=== PATIENT | female | born 1975 | race Asian ===

== ENCOUNTER 2016-12-18 10:45 | Emergency (ER) | payer BC ==
[2016-12-18 14:04] VITALS: BP 115/67
[2016-12-18] MEDS ORDERED: Ciprofloxacin TAB* 500 MG PO ONE (15:38)
--- NOTE | 2016-12-28 14:00 | UC ---
Marciano Francis Erika, scribed for Melanie Garcia DO on 12/18/16 at 1440 . Abdominal Pain Female HPI - HPI Summary HPI Summary: Patient is a 41-year-old female presenting to [facility] with a CC of constant RLQ pain. Patient reports that she developed this cramping pain 5 days ago, gradually worsening daily. Pain has always been located in the RLQ, but in the past two days has intermittently radiated to the right lower flank as well. Patient notes that pain is worst in the morning and at night, and is somewhat better during the day. This morning, pain was a 6/10, and is now a 4/10. There are seemingly random spikes of increased pain. Pain is not aggravated by bumps in the road. Patient also notes that 2 days ago, she had a subjective fever and chills and took Tylenol. She also reports frequent BMs yesterday, but denies diarrhea. Patient denies any other symptoms including sore throat, ear ache, cough, SOB, chest pain, decreased appetite, nausea, vomiting, and urinary symptoms. PSHx cholecystectomy, uterine surgery - pt is unsure why she had this surgery. She denies Hx appendectomy. FHx HTN, hyperlipidemia. Patient does not smoke. - History of Current Complaint Chief Complaint: UCAbdominalPain Stated Complaint: ABD PAIN Time Seen by Provider: 12/18/16 14:35 Hx Obtained From: Patient Hx Last Menstrual Period: 12/09/16 Onset/Duration: Gradual Onset, Lasting Days - 5 days, Still Present Timing: Constant Severity Initially: Mild Severity Currently: Moderate Pain Intensity: 4 Pain Scale Used: 0-10 Numeric Location: Discrete At: RLQ Radiates: Yes Radiates to: Flank - R Character: Cramping Aggravating Factor(s): Nothing Alleviating Factor(s): Nothing Associated Signs and Symptoms: Positive: Fever - subjective. Negative: Cough, Chest Pain, Urinary Symptoms, Decreased Appetite, Nausea, Vomiting, Diarrhea Allergies/Adverse Reactions: Allergies Allergy/AdvReac Type Severity Reaction Status Date / Time No Known Allergies Allergy Verified 12/18/16 11:43 PMH/Surg Hx/FS Hx/Imm Hx Endocrine History Of: Denies: Diabetes, Thyroid Disease Cardiovascular History Of: Denies: Cardiac Disorders, Hypertension Respiratory History Of: Denies: COPD, Asthma GI/ History Of: Reports: Gall Bladder Disease - s/p [place] 2006 Denies: Ulcer Cancer History Of: Denies: Breast Cancer - Surgical History Surgical History: Yes Surgery Procedure, Year, and Place: 11/17 [facility] [place]. uterine surgery - unsure why - Family History Known Family History: Positive: Hypertension, Other - hyperlipidemia - Social History Occupation: Employed Full-time Alcohol Use: None Substance Use Type: None Smoking Status (MU): Never Smoked Tobacco Review of Systems Constitutional: Fever - subjective, Chills Skin: Negative Eyes: Negative ENT: Negative Respiratory: Negative Cardiovascular: Negative Gastrointestinal: Abdominal Pain - RLQ sometimes radiating to R flank Genitourinary: Negative Motor: Negative Neurovascular: Negative Musculoskeletal: Negative Neurological: Negative Psychological: Negative All Other Systems Reviewed And Are Negative: Yes Physical Exam Triage Information Reviewed: Yes Appearance: Well-Appearing, No Pain Distress, Well-Nourished Vital Signs: Initial Vital Signs Temp 98.3 F 12/18/16 11:35 Pulse 77 12/18/16 11:35 Resp 16 12/18/16 11:35 BP 116/67 12/18/16 11:35 Pulse Ox 100 12/18/16 11:35 Vital Signs Reviewed: Yes Eyes: Positive: Conjunctiva Clear. Negative: Discharge ENT: Positive: Hearing grossly normal. Negative: Muffled/hoarse voice Neck: Positive: Supple, Nontender Respiratory: Positive: Lungs clear, Normal breath sounds, No respiratory distress, No accessory muscle use Cardiovascular: Positive: RRR, No Murmur Abdomen Description: Positive: Soft, Other: - Periumbilical and RLQ tenderness. Negative: CVA Tenderness (R), CVA Tenderness (L), Distended, Guarding Bowel Sounds: Positive: Present Musculoskeletal Exam: Normal Neurological: Positive: Alert, Muscle Tone Normal Psychological Exam: Normal Psychological: Positive: Age Appropriate Behavior Skin Exam: Other - warm, dry, normal color Abd Pain Female Course/Dx - Course Course Of Treatment: Patient declined CT A/P w/o contrast to look for a kidney stone. Patient declines transfer to the ED to r/o appendicitis. Discussed risks of leaving AMA with patient. These risks include worsening infection, increased pain, ruptured appendix with peritonitis, sepsis, and . Discussed that antibiotics prescribed for possible UTI will not be effective against an infected kidney stone or appendicitis. Patient verbalized understanding. Patient was again advised to go to the ER, especially for new or worsening symptoms. - Differential Dx/Diagnosis Provider Diagnoses: 1. UTI. 2. Abdominal pain NOS. 3. AMA Discharge - Discharge Plan Condition: Stable Disposition: AGAINST MEDICAL ADVICE Prescriptions: Ciprofloxacin TAB* [Cipro Tab*] 250 mg PO BID #6 tab Patient Education Materials: Kidney Stones (ED), Urinary Tract Infection in Women (ED), Acute Abdominal Pain (ED) Referrals: Kathryn Cutler MD [Primary Care Provider] - As Soon As Possible Additional Instructions: YOU ARE LEAVING AGAINST MEDICAL ADVISE. WE HAVE RECOMMENDED TRANSFER TO THE ED FOR THOROUGH EVALUATION OF YOUR ABDOMINAL PAIN TO RULE OUT APPENDICITIS, INFECTED KIDNEY STONE OR OTHER SERIOUS INTRA-ABDOMINAL PROCESS. YOU HAVE REFUSED. YOUR RISKS INCLUDE WORSENING PAIN, WORSENING INFECTION, RUPTURE, SEPSIS AND . IF YOU CHANGE YOUR MIND, YOU CAN STILL GO TO THE ED AT ANY TIME. BECAUSE THERE IS EVIDENCE OF INFECTION IN YOUR URINE, WE WILL START YOU ON ANTIBIOTICS TO COVER A UTI. UNDERSTAND THAT THIS MEDICINE WOULD NOT BE ADEQUATE TO TREAT ANY OF THE PROBLEMS LISTED IN THE PARA GRAPH ABOVE. CIPROFLOXACIN: You have been given a new antibacterial agent, ciprofloxacin (Cipro). This medicine is not related to the penicillins, sulfas, cephalosporins, or tetracyclines. It is often given to patients who are allergic to these drugs. It has been chosen for you either because other drugs are not appropriate, or because of the nature of your problem. Cipro should not be taken with antacids, as these can decrease its effectiveness. It can be taken without regard to meals. CIPRO SHOULD NOT BE TAKEN BY CHILDREN, NURSING WOMEN, OR WOMEN. Although Cipro is usually well-tolerated, common side effects can include nausea and diarrhea. Contact your doctor if you experience any unusual symptoms while on this medication, such as joint pain or swelling, shortness of breath, wheezing, faintness, or hives. ANY TIME YOU TAKE AN ANTIBIOTIC, IT IS IMPORTANT TO REPLENISH THE BODY'S BALANCE OF "GOOD" BACTERIA BY EATING HIGH QUALITY CULTURED FOOD SUCH YOGURT, SAURKRAUT OR BLAINE CHI AND/OR TAKING A PROBIOTIC SUPPLEMENT. The documentation as recorded by the Marciano fofana Erika accurately reflects the service I personally performed and the decisions made by , Melanie Garcia DO.
== END 2016-12-18 15:05 | disposition left against medical advice (07) ==
LOC: UCEAST 10:45
DX: N39.0 Urinary tract infection, site not specified (principal); R10.31 Right lower quadrant pain; Z32.02 Encounter for pregnancy test, result negative; R50.9 Fever, unspecified; Z90.49 Acquired absence of other specified parts of digestive tract
CPT/HCPCS: 81003; 84702; 87086; 99212; A9270-GY; G0463

== ENCOUNTER 2019-02-08 11:32 | Emergency (ER) | payer OTHER ==
--- OUTSIDE RECORDS SUMMARY | 2019-02-08 11:46 | XMS REPORT | Continuity of Care Document ---
:1975 External Reference #:[id number] Author Name Steven Medina M.D. Address [address] [place] [address] Care Team Providers Name Role Phone Kathryn Cutler M.D. Primary Care Physician Unavailable Payers Date Identification Numbers Payment Provider Subscriber Policy Number: [id number] [employer] Ppo/Pos/Epo/Nap Smita V Dut PayID: [id number] [address] [place] [address] Advance Directives Description No Information Available Problems Active Problems Provider Date Keratoconus, stable condition Steven Medina M.D. Onset: 01/13/2016 Presbyopia Steven Medina M.D. 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 Employment ETOH Use Denies alcohol use Recreational Drug Use Denies Drug Use Tobacco Use Start: Unknown Patient has never smoked Smoking Status Reviewed: 01/19/19 Patient has never smoked Allergies, Adverse Reactions, Alerts Description No Known Drug Allergies Medications Active Medications SIG Qnty Indications Ordering Provider Date Vitamin D Unknown 2000Unit Capsules Multi Vitamin Daily Unknown Tablets Vitamin B Complex Unknown Tablets Immunizations Description No Information Available Vital Signs Description No Information Available Results Description No Information Available Procedures Date Code Description Status 01/18/2018 25540 Scanning Computerized Ophthalmic Diagnostic Imaging, Completed Anterior 01/18/2018 51893 Computerized Corneal Topography Completed 01/18/2018 49381 Est Patient Comprehensive Exam Completed 2017 05960 Scanning Computerized Ophthalmic Diagnostic Imaging, Completed Anterior 2017 24447 Computerized Corneal Topography Completed 2017 38142 Determination Of Refractive State Completed 2017 03246 Est Patient Comprehensive Exam Completed 01/13/2016 77999 Est Patient Comprehensive Exam Completed 01/13/2016 84294 Computerized Corneal Topography Completed 01/13/2016 07550 Scanning Computerized Ophthalmic Diagnostic Imaging, Completed Anterior 01/05/2014 15441 Computerized Corneal Topography Completed 01/05/2014 67602 Est Patient Comprehensive Exam Completed 12/27/2012 64088 Computerized Corneal Topography Completed 12/27/2012 45366 Est Patient Comprehensive Exam Completed 11/09/2011 31500 Computerized Corneal Topography Completed 11/09/2011 82317 Determination Of Refractive State Completed 11/09/2011 19135 New Patient Comprehensive Exam Completed Encounters Description No Information Available Plan of Treatment 01/19/2019 - Steven Medina M.D.H18.613 Keratoconus, stable, bilateralComments :Smoking can increase the risk of developing or worsening any eye related disease, as well as affect your overall health. If you are a smoker, we strongly recommend that you quit.If you are not a smoker, we strongly recommend that you do not start. You have Keratoconus in your left eye. This is when your cornea is abnormally shaped. You have Keratoconus in your right eye. This is when your cornea is abnormally shaped.Follow up:1 Year Follow Up Diagnostic Refraction Corneal Topography You can expect to have your eyes dilated at your next visit. If Dr. Medina orders any additional testing, it may require extra time. We recommend that you bring sunglasses, as dilation drops often make you light sensitive until they wear off. We always recommend you bring someone to drive you home if you are uncomfortable driving with your eyes dilated. If you have any questions before your next visit, feel free to call our office at .h52.0 PresbyopiaComments:You have presbyopia. This is when the lens in your eye loses the ability to change focus, and happens as we age. A pair of reading glasses will help you see up close.
--- OUTSIDE RECORDS SUMMARY | 2019-02-08 11:46 | XMS REPORT | Continuity of Care Document ---
:1975 External Reference #:[id number] Author Name Kathryn Lopes M.D. 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 [employer] Number: [id number] [address] PayID: [id number] [place] [address] Advance Directives Description No Information Available Problems Active Problems Provider Date Contact dermatitis Dariel Hernandez M.D. Onset: 01/19/2008 External hemorrhoids without complication Asiya Rowe M.D. Onset: 2010 Visual impairment Asiya Rowe M.D. Onset: 08/10/2011 Female infertility Asiya Rowe M.D. Onset: 08/10/2011 Malaise and fatigue Asiya Rowe M.D. Onset: 08/10/2011 Vitamin D deficiency Kathryn Lopes M.D. Onset: 08/18/2012 Obstructive sleep apnea syndrome Kathryn Lopes M.D. Onset: 08/18/2012 Thalassemia trait Rosa Truong NP Onset: 01/01/2016 Family History Date Family Member(s) Observation Comments General Cerebrovascular Accident (CVA) PGF,PGM General Stomach Cancer mother's sister. General No family hx breast, colon CA. no DM. Father colon surgery, diverticulitis? with patient. Mother HTN, high cholesterol. arthritis, Hepatitis C lives with patient. Order 8 siblings. [facility] still in [facility] Social History Type Date Description Comments Sex Unknown Marital Status Patient is Living Situation Lives with spouse, mother and father Came to the us in 1997 from [place]. 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 Tobacco Use Start: Unknown Never Smoked Cigarettes Smoking Status Reviewed: 01/19/19 Never Smoked Cigarettes ETOH Use Denies alcohol use Tobacco Use Start: Unknown Patient has never smoked Exercise Type/Frequency Does not exercise currently Current Seat Belt/Car Seat Always uses a seat belt Guns in Home There are not guns in the home Smoke Alarms There are smoke alarms in the house Allergies, Adverse Reactions, Alerts Description No Known Drug Allergies Medications Active Medications SIG Qnty Indications Ordering Provider Date Escitalopram Oxalate 1 by mouth every 30tabs F43.22 Kathryn Ronquillo 01/19/2019 day Lashae Lopes 5mg Tablets Clonazepam take one by mouth 30tabs F43.22 Kathryn Ronquillo 09/28/2018 0.5mg twice daily as Lashae Lopes Tablets needed for panic disorder Multivitamin Adult Kathryn Ronquillo 01/13/2018 Lashae Lopes Chewtabs Vitamin D3 1 a day. Kathryn Ronquillo 01/13/2018 2000Unit Lashae Lopes Tablets History Medications Lorazepam take 1/2 - 1 pill 45tabs F43.22 Carol House 09/28/2018 - 0.5mg by mouth up to ZELALEM Guzman 09/28/2018 Tablets twice daily as needed for anxiety No Active Unknown 12/01/2016 - Medications 01/13/2018 Vitamin D 1 by mouth weekly 8caps E55.9 Rosa Truong NP 12/26/2015 - (Ergocalciferol) for 8 weeks 12/01/2016 [id number] Capsules Physical Therapy evaluate and treat M62.89 Kathryn Ronquillo 11/20/2015 - Poor core Lashae Lopes 12/26/2015 strength. Itraconazole 2 pills po bid x 7 56caps 110.1 Kathryn Ronquillo 11/10/2013 - 100mg days (first week Lashae Lopes 11/20/2015 Capsules of the month) for two months. Triamcinolone apply 1 30GR 782.1 Kathryn Ronquillo 11/10/2013 - Acetonide application Lashae Lopes 11/20/2015 0.025% topically to Cream affected area 2 times a day Vitamin D 1 po weekly x 8. 8caps 110.1 Kathryn SalmonDahlia 11/10/2013 - [id number] Lopes M.D. 11/20/2015 Capsules Vitamin D 1 po weekly x 8. 8caps Kathryn Shima 09/01/2012 - [id number] Lashae Lopes 11/10/2013 Capsules Vitamin D3 1 po qd 90units 268.9 Asiya Rowe, 08/10/2011 - 2000Unit M.DDahlia 08/18/2012 Diflucan 1 po times , january 2tabs 616.11 Asiya Rowe, 10/14/2009 - 150mg repeat in 4 days M.D. 08/04/2010 Tablets if symptoms persist Diflucan 1 po times , january 2tabs 616.11 Asiya Rowe, 04/16/2009 - 150mg repeat in 4 days M.D. 10/14/2009 Tablets if symptoms persist Betamethasone apply sparingly 45gm Dariel Hernandez, 01/19/2008 - Valerate bid M.D. 10/14/2009 0.1% Cream Folic Acid 1 po qd 30tabs Dariel Hernandez, 01/19/2008 - 1mg M.D. 01/21/2009 Tablets Celebrex 1 po bid prn elbow 60caps Dariel Hernandez, 11/24/2007 - 200mg pain M.D. 01/21/2009 Capsules Naproxen 1 po bid w/ food 60tabs Dariel Hernandez, 10/31/2007 - 500mg for elbow pain M.D. 01/19/2008 Tablets Xanax 1 PO bid prn 60tabs Dariel Hernandez, 09/29/2006 - 0.25mg Tablets Anxiety M.D. 01/21/2009 Patanol 1 gtts OU bid prn 5ml Brandie 09/01/2005 - 0.1% Solution Nando Jamison 09/29/2006 Triamcinolone Cream use tid as needed 30gm Dariel Hernandez, 12/10/2004 - M.D. 09/29/2006 0.1% Macrobid 1 14Tabs Talita Ventura, 12/26/2002 - 100mg [employer] 02/13/2003 PO bid With Meals Physical Therapy Treatment And Dariel Hernandez, 04/30/2000 - Evaluation Neck M.DDahlia 12/26/2002 And Low Back Pain/Strain. Naproxen 1 PO tid prn 40units Dariel Hernandez, 04/30/2000 - 375mg Tab M.DDahlia 12/26/2002 Selsun Shampoo Apply Daily For 1Bottle Justo Vogel 02/27/2000 - Ten Minutes, Then Lashae Smith 03/05/2000 Rinse, For 7 Days Medications Administered in Office Medication SIG Qnty Indications Ordering Provider Date TB Intradermal Test Kathryn Lopes M.D. 02/05/2016 Injection TB Intradermal Test Kathryn Lopes M.D. 01/08/2014 Injection TB Intradermal Test Talita Ventura, [employer] 03/29/2002 Injection Immunizations CPT Code Status Date Vaccine Lot # [id number] Given 07/13/2018 Influenza Vac, Quadriv[place] [address] Given 11/20/2015 Influenza Vac, Quadrivalent, Slit Virus, Im [id number] 67628 Given 08/09/2013 DO Not Use Split Influenza Virus Vaccine 07363 Given 08/18/2012 Tdap Tetanus, W Pertussis [id number] Given 08/04/2010 DO Not Use Split Influenza Virus Vaccine [id number] Given 03/29/2002 Td Immunization, For Use In Individuals 7 Years Or Older 83872 Given 03/29/2002 DT Immunization 48813 Given 07/30/2000 MMR Virus Immunization Vital Signs Date Vital Result Comment 01/19/2019 1:03pm BP Systolic 110 mmHg BP Diastolic 72 mmHg Heart Rate 66 /min Body Temperature 98.4 F Respiratory Rate 16 /min Height 61 inches 5'1" Weight 137.00 lb BMI (Body Mass Index) 25.9 kg/m2 11/02/2018 9:39am BP Systolic 118 mmHg BP Diastolic 68 mmHg Heart Rate 78 /min Body Temperature 97.5 F Respiratory Rate 20 /min Weight 137.00 lb 09/28/2018 9:02am BP Systolic 118 mmHg BP Diastolic 70 mmHg Heart Rate 76 /min Body Temperature 98.2 F Respiratory Rate 20 /min Weight 141.00 lb 03/03/2018 3:24pm BP Systolic 120 mmHg BP Diastolic 68 mmHg Heart Rate 78 /min Body Temperature 97.8 F Respiratory Rate 18 /min Height 61.5 inches 5'1.50" Weight 135.00 lb BMI (Body Mass Index) 25.1 kg/m2 01/13/2018 10:53am BP Systolic 110 mmHg BP Diastolic 78 mmHg Heart Rate 78 /min Body Temperature 97.9 F Respiratory Rate 18 /min Height 61.5 inches 5'1.50" Weight 136.00 lb BMI (Body Mass Index) 25.3 kg/m2 12/01/2016 10:44am BP Systolic 110 mmHg BP Diastolic 80 mmHg Heart Rate 76 /min Body Temperature 97.9 F Respiratory Rate 18 /min Height 61.5 inches 5'1.50" Weight 142.00 lb BMI (Body Mass Index) 26.4 kg/m2 12/26/2015 8:42am BP Systolic 122 mmHg BP Diastolic 72 mmHg Heart Rate 76 /min Body Temperature 97.7 F Height 61.5 inches 5'1.50" Weight 136.25 lb BMI (Body Mass Index) 25.3 kg/m2 11/20/2015 10:16am BP Systolic 110 mmHg BP Diastolic 60 mmHg Heart Rate 68 /min Body Temperature 97.9 F Respiratory Rate 16 /min Height 61.5 inches 5'1.50" Weight 136.00 lb BMI (Body Mass Index) 25.3 kg/m2 09/04/2014 3:18pm BP Systolic 104 mmHg BP Diastolic 62 mmHg Heart Rate 72 /min Body Temperature 98.3 F Respiratory Rate 14 /min Height 61.5 inches 5'1.50" Weight 140.00 lb BMI (Body Mass Index) 26.0 kg/m2 01/11/2014 3:34pm BP Systolic 116 mmHg BP Diastolic 74 mmHg Heart Rate 78 /min Body Temperature 97.0 F Respiratory Rate 16 /min Height 61.5 inches 5'1.50" Weight 135.00 lb BMI (Body Mass Index) 25.1 kg/m2 11/10/2013 8:42am BP Systolic 116 mmHg BP Diastolic 74 mmHg Heart Rate 78 /min Body Temperature 97.0 F Height 61.5 inches 5'1.50" Weight 135.50 lb BMI (Body Mass Index) 25.2 kg/m2 08/18/2012 2:27pm BP Systolic 100 mmHg BP Diastolic 70 mmHg Heart Rate 68 /min Body Temperature 98.1 F Height 62 inches 5'2" Weight 133.00 lb BMI (Body Mass Index) 24.3 kg/m2 08/10/2011 9:13am BP Systolic 98 mmHg BP Diastolic 68 mmHg Heart Rate 72 /min Body Temperature 97.6 F Height 61 inches 5'1" Weight 137.00 lb BMI (Body Mass Index) 25.9 kg/m2 Right Visual Acuity Distance 20/70 uncorrected Left Visual Acuity Distance 20/30 uncorrected 08/04/2010 9:02am BP Systolic 100 mmHg BP Diastolic 62 mmHg Heart Rate 68 /min Body Temperature 98.3 F Respiratory Rate 16 /min Height 61 inches 5'1" Weight 133.00 lb BMI (Body Mass Index) 25.1 kg/m2 10/14/2009 11:37am BP Systolic 112 mmHg BP Diastolic 72 mmHg Heart Rate 68 /min Body Temperature 98.7 F Weight 131.00 lb 04/16/2009 10:01am BP Systolic 128 mmHg BP Diastolic 72 mmHg Heart Rate 60 /min Body Temperature 97.7 F Height 61 inches 5'1" Weight 131.00 lb BMI (Body Mass Index) 24.7 kg/m2 01/21/2009 10:48am BP Systolic 92 mmHg BP Diastolic 66 mmHg Heart Rate 60 /min Body Temperature 97.3 F Height 61 inches 5'1" Weight 133.00 lb BMI (Body Mass Index) 25.1 kg/m2 01/19/2008 10:53am BP Systolic 102 mmHg BP Diastolic 58 mmHg Heart Rate 76 /min Body Temperature 97.8 F Height 61 inches 5'1" Weight 134.00 lb BMI (Body Mass Index) 25.3 kg/m2 11/24/2007 9:03am BP Systolic 96 mmHg BP Diastolic 54 mmHg Heart Rate 60 /min Height 61 inches 5'1" Weight 134.00 lb BMI (Body Mass Index) 25.3 kg/m2 10/31/2007 9:26am BP Systolic 96 mmHg BP Diastolic 50 mmHg Heart Rate 68 /min Body Temperature 97.9 F Respiratory Rate 12 /min Height 61 inches 5'1" Weight 134.00 lb BMI (Body Mass Index) 25.3 kg/m2 10/20/2006 10:02am BP Systolic 96 mmHg BP Diastolic 64 mmHg Heart Rate 66 /min Height 61 inches 5'1" Weight 131.00 lb BMI (Body Mass Index) 24.7 kg/m2 09/29/2006 2:50pm BP Systolic 100 mmHg BP Diastolic 60 mmHg Heart Rate 66 /min Height 61 inches 5'1" Weight 135.00 lb BMI (Body Mass Index) 25.5 kg/m2 07/23/2006 12:57pm BP Systolic 94 mmHg BP Diastolic 60 mmHg Heart Rate 72 /min Body Temperature 98.7 F Height 61 inches 5'1" Weight 135.00 lb BMI (Body Mass Index) 25.5 kg/m2 09/01/2005 1:56pm BP Systolic 98 mmHg BP Diastolic 64 mmHg Heart Rate 66 /min Body Temperature 98.2 F Height 61 inches 5'1" Weight 137.00 lb BMI (Body Mass Index) 25.9 kg/m2 12/10/2004 10:32am BP Systolic 120 mmHg BP Diastolic 66 mmHg Heart Rate 60 /min Body Temperature 97.2 F Height 61 inches 5'1" Weight 128.00 lb BMI (Body Mass Index) 24.2 kg/m2 Right Visual Acuity Distance 20/50 Left Visual Acuity Distance 20/30 02/13/2003 1:50pm BP Systolic 90 mmHg BP Diastolic 50 mmHg Height 62 inches 5'2" Weight 125.00 lb BMI (Body Mass Index) 22.9 kg/m2 12/26/2002 9:16am BP Systolic 102 mmHg BP Diastolic 70 mmHg Body Temperature 98.4 F Height 62 inches 5'2" Weight 124.00 lb BMI (Body Mass Index) 22.7 kg/m2 07/20/2002 9:46am BP Systolic 124 mmHg BP Diastolic 60 mmHg Heart Rate 68 /min Height 62 inches 5'2" Weight 126.00 lb BMI (Body Mass Index) 23.0 kg/m2 03/29/2002 10:25am BP Systolic 98 mmHg BP Diastolic 60 mmHg Heart Rate 72 /min Body Temperature 97.4 F Height 62 inches 5'2" Weight 130.00 lb BMI (Body Mass Index) 23.8 kg/m2 12/26/2001 1:56pm BP Systolic 90 mmHg BP Diastolic 48 mmHg Heart Rate 76 /min Body Temperature 98.8 F Height 61 inches 5'1" Weight 129.00 lb BMI (Body Mass Index) 24.4 kg/m2 06/16/2000 8:37am BP Systolic 104 mmHg BP Diastolic 64 mmHg Heart Rate 66 /min Height 61 inches 5'1" 05/19/2000 8:11am BP Systolic 102 mmHg BP Diastolic 60 mmHg Heart Rate 80 /min Height 61 inches 5'1" Weight 124.00 lb BMI (Body Mass Index) 23.4 kg/m2 04/30/2000 10:04am BP Systolic 104 mmHg LA, SM Cuff BP Diastolic 66 mmHg LA, SM Cuff Heart Rate 64 /min Reg Height 61 inches 5'1" Weight 124.00 lb BMI (Body Mass Index) 23.4 kg/m2 04/21/2000 11:56am BP Systolic 112 mmHg BP Diastolic 66 mmHg Height 61 inches 5'1" Weight 122.00 lb BMI (Body Mass Index) 23.0 kg/m2 02/27/2000 10:19am BP Systolic 112 mmHg LA SM Cuff BP Diastolic 60 mmHg LA SM Cuff Body Temperature 97.6 F Height 61 inches 5'1" 01/13/1999 9:16am BP Systolic 108 mmHg Ra SM Cuff BP Diastolic 50 mmHg Ra SM Cuff Height 61 inches 5'1" Weight 122.00 lb Results Test Date Facility Test Result H/L Range Note Comprehensive Metabolic 01/04/2019 [facility]) Sodium 140 mEq/L 134-149 Prof Potassium 4.2 mEq/L 3.6-5.5 Chloride 102 mEq/L 94-112 Carbon Dioxide 28 mEq/L 21-32 Glucose 103 mg/dL 70-105 BUN 18 mg/dL 6-26 Creatinine 0.7 mg/dL 0.6-1.4 BUN/Creat Ratio 25.7 CALC 8.0-36.0 Calcium 9.0 mg/dL 8.6-10.2 Total Protein 7.3 g/dL 6.4-8.3 Albumin 4.5 g/dL 3.8-5.5 Globulin 2.8 g/dL 2.0-4.8 A/G Ratio 1.6 CALC 0.6-2.3 Alk. Phosphatase 54 U/L 30-110 Alt (SGPT) 13 U/L 7-35 Ast (Sgot) 13 U/L 5-34 Total Bilirubin 0.8 mg/dL 0.2-1.3 GFR Non- >60 ml/min/1.73m^ >=60 GFR >60 ml/min/1.73m^ >=60 Lipid Profile 01/04/2019 [facility]) Cholesterol 240 mg/dL High 120-200 Triglycerides 94 mg/dL 30-200 HDL Cholesterol 56 mg/dL 30-85 LDL (Calculated) 165 CALC High 0-129 VLDL Cholesterol 19 mg/dL 0-50 HDL Risk Factor 4.3 CALC 0.0-4.4 CBC Electronic Fma 01/04/2019 [facility](a) WBC 7.0 x10^3/UL 4.0- 10.0 RBC 5.04 x10^6/UL 3.93-6.00 HGB 12.4 g/dL 12.0-17.0 HCT 39 % 35-50 MCV 77.2 fL Low 80.0-95.0 1 MCH 24.6 pg Low 25.6-32.2 2 MCHC 31.9 g/dL Low 32.2-36.0 3 RDW-CV 13.1 % 11.6-14.4 PLT 300 x10^3/UL 163-400 MPV 10.9 fL 9.4-12.4 Ryan# 3.58 x10^3/UL 1.56-6.13 Lymph# 2.29 x10^3/UL 1.18-3.74 Owsley# 0.72 x10^3/UL 0.24-0.82 Eos # 0.3 x10^3/UL 0.0-0.5 Baso # 0.08 x10^3/UL 0.01-0.08 Ryan% 51.4 % 34.0-70.0 Lymph % 32.9 % 20.0-52.0 Owsley% 10.3 % 5.0-12.0 Eos% 4.0 % 0.7-7.0 Baso% 1.1 % 0.1-1.2 Laboratory test 01/04/2019 [facility](a) TSH 5.17 mIU/L 0.50-6.00 finding Iron And Tibc 01/13/2018 [facility] Iron 376 g/dL 250-450 4 [address] [facility] [place] [address] bc) (607)- - Uibc 306 g/dL 131-425 Iron 70 g/dL 27-159 Iron Saturation 19 % 15-55 Laboratory test 01/13/2018 [facility]) Vitamin D25 26 Low 30-100 finding CBC Electronic Fma 01/13/2018 [facility]) WBC 6.6 4.0-10.0 x10^3/UL RBC 4.95 x10^6/UL 3.93-6.00 HGB 12.1 g/dL 12.0-17.0 HCT 38 % 35-50 MCV 75.8 fL Low 80.0-95.0 5 MCH 24.4 pg Low 25.6-32.2 6 MCHC 32.3 g/dL 32.2-36.0 RDW-CV 13.2 % 11.6-14.4 PLT 247 x10^3/UL 163-400 MPV 11.2 fL 9.4-12.4 Ryan# 3.79 x10^3/UL 1.56-6.13 Lymph# 1.86 x10^3/UL 1.18-3.74 Owsley# 0.66 x10^3/UL 0.24-0.82 Eos # 0.2 x10^3/UL 0.0-0.5 Baso # 0.05 x10^3/UL 0.01-0.08 Ryan% 57.6 % 34.0-70.0 Lymph % 28.3 % 20.0-52.0 Owsley% 10.0 % 5.0-12.0 Eos% 3.0 % 0.7-7.0 Baso% 0.8 % 0.1-1.2 Comprehensive Metabolic 01/13/2018 [facility]) Sodium 141 mEq/L 134-149 Prof Potassium 4.4 mEq/L 3.6-5.5 Chloride 102 mEq/L 94-112 Carbon Dioxide 25 mEq/L 21-32 Glucose 104 mg/dL 70-105 BUN 15 mg/dL 6-26 Creatinine 0.7 mg/dL 0.6-1.4 BUN/Creat Ratio 21.4 CALC 8.0-36.0 Calcium 9.1 mg/dL 8.6-10.2 Total Protein 7.1 g/dL 6.4-8.3 Albumin 4.5 g/dL 3.8-5.5 Globulin 2.6 g/dL 2.0-4.8 A/G Ratio 1.7 CALC 0.6-2.3 Alk. Phosphatase 49 U/L 30-110 Alt (SGPT) 17 U/L 7-35 Ast (Sgot) 18 U/L 5-34 Total Bilirubin 0.6 mg/dL 0.2-1.3 GFR Non- >60 ml/min/1.73m^ >=60 GFR >60 ml/min/1.73m^ >=60 Lipid Profile 01/13/2018 [facility](a) Cholesterol 229 mg/dL High 120-200 Triglycerides 69 mg/dL 30-200 HDL Cholesterol 56 mg/dL 30-85 LDL (Calculated) 159 CALC High 0-129 VLDL Cholesterol 14 mg/dL 0-50 HDL Risk Factor 4.1 CALC 0.0-4.4 Laboratory test finding 01/13/2018 [facility](a) TSH 3.27 mIU/L 0.50-6.00 Ferritin 64 ng/mL 6-115 Laboratory test 12/18/2016 [facility] [place] And SEE RESULT 7, 8 finding Sensitivities BELOW Laboratory test 12/18/2016 [facility] Poc , Urine Negative N Negative 9 finding Poc Urinalysis 12/18/2016 [facility] [place]oc Glucose, Urine Negative N Negative Poc Bilirubin, Urine Negative N Negative Poc Ketone, Urine Negative N Negative Poc Specific [place], Urine 1.020 N 1.010-1.030 Poc Blood, Urine Trace-intact Abnormal Negative Poc pH, Urine 6.5 N 5-9 Poc Protein, Urine Negative N Negative Poc Urobilinogen, Urine 0.2 N Negative Poc Nitrite, Urine Negative N Negative Poc Leukocytes, Urine Trace Abnormal Negative Poc Color, Urine Yellow N Poc Clarity, Urine Clear N 10 Laboratory test finding 12/01/2016 [facility](a) TSH 2.69 mIU/L 0.50-6.00 Vitamin D25 16 Low 30-100 Comprehensive Metabolic 12/01/2016 [facility](a) Sodium 139 mEq/L 134-149 Prof Potassium 4.5 mEq/L 3.6-5.5 Chloride 101 mEq/L 94-112 Carbon Dioxide 27 mEq/L 21-32 Glucose 109 mg/dL High 70-105 11 BUN 20 mg/dL 6-26 Creatinine 0.6 mg/dL 0.6-1.4 BUN/Creat Ratio 33.3 CALC 8.0-36.0 Calcium 9.0 mg/dL 8.6-10.2 Total Protein 7.2 g/dL 6.4-8.3 Albumin 4.2 g/dL 3.8-5.5 Globulin 3.0 g/dL 2.0-4.8 A/G Ratio 1.4 CALC 0.6-2.3 Alk. Phosphatase 54 U/L 30-110 Alt (SGPT) 21 U/L 7-35 Ast (Sgot) 20 U/L 5-34 Total Bilirubin 0.6 mg/dL 0.2-1.3 GFR Non- >60 ml/min/1.73m^ >=60 GFR >60 ml/min/1.73m^ >=60 Complete Blood Count 12/01/2016 [facility]) WBC 6.3 x10^3/UL 3.6 -9.6 RBC 5.16 x10^6/UL 3.90-5.70 HGB 12.6 g/dL 12.1-17.2 HCT 39 % 36-50 MCV 75.0 fL Low 82.2-97.4 MCH 24.5 pg Low 27.6-33.3 MCHC 32.5 g/dL Low 33.0-35.5 RDW 14.3 % High 11.6-13.7 PLT 290 x10^3/UL 150-400 MPV 7.6 fL 7.4-10.4 Gran # 4.1 x10^3/UL 1.5-7.2 Lymph# 1.8 x10^3/UL 0.7-4.9 Owsley# 0.4 x10^3/UL 0.1-0.9 Gran % 63.1 % 42.2-75.2 Lymph % 29.0 % 20.5-51.1 Owsley% 7.9 % 1.7-9.3 Hepatitis Panel 12/01/2016 [facility] Hep A Ab, Positive Abnormal Negative 12 (5) [address] [place] [address] (604)- - HBsAg Screen Negative Negative Hep B Surface Ab Non Reactive 13 HCV Antibody 0.2 s/coratio 0.0-0.9 14 Iron And 12/26/2015 [facility] Iron [facility]) 336 g/dL 250-450 15 [facility] [address] [place] [address] (607)- - Uibc 292 g/dL 131-425 Iron, Serum 44 g/dL 27-159 Iron Saturation 13 % Low 15-55 Laboratory test 12/26/2015 [facility] Transferrin 309 mg/dL 200-370 finding [address] [place] [address] (607)- - Laboratory test 12/26/2015 [facility]) Ferritin 58 ng/mL 6-115 16 finding Comprehensive 11/20/2015 [facility]) Sodium 134 mEq/L 134-149 Metabolic Prof Potassium 4.4 mEq/L 3.6-5.5 Chloride 101 mEq/L 94-112 Carbon Dioxide 29 mEq/L 21-32 Glucose 86 mg/dL 70-105 BUN 14 mg/dL 6-26 Creatinine 0.7 mg/dL 0.6-1.4 BUN/Creat Ratio 20.0 CALC 8.0-36.0 Calcium 9.9 mg/dL 8.6-10.2 Total Protein 8.0 g/dL 6.4-8.3 Albumin 4.5 g/dL 3.8-5.5 Globulin 3.5 g/dL 2.0-4.8 A/G Ratio 1.3 CALC 0.6-2.3 Alk. Phosphatase 62 U/L 30-110 Alt (SGPT) 15 U/L 7-35 Ast (Sgot) 22 U/L 5-34 Total Bilirubin 1.0 mg/dL 0.2-1.3 GFR Non- >60 ml/min/1.73m^ >=60 GFR >60 ml/min/1.73m^ >=60 Lipid Profile 11/20/2015 [facility]) Cholesterol 230 mg/dL High 120-200 Triglycerides 112 mg/dL 30-200 HDL Cholesterol 61 mg/dL 30-85 LDL (Calculated) 147 CALC High 0-129 VLDL Cholesterol 22 mg/dL 0-50 HDL Risk Factor 3.8 CALC 0.0-4.4 Complete Blood Count 11/20/2015 [facility]) WBC 6.2 x10^3/UL 3.6 -9.6 RBC 5.32 x10^6/UL 3.90-5.70 HGB 13.3 g/dL 12.1-17.2 HCT 41 % 36-50 MCV 78.0 fL Low 82.2-97.4 17 MCH 25.0 pg Low 27.6-33.3 18 MCHC 32.2 g/dL Low 33.0-35.5 19 RDW 12.8 % 11.6-13.7 PLT 311 x10^3/UL 150-400 MPV 8.5 fL 7.4-10.4 Gran # 3.8 x10^3/UL 1.5-7.2 Lymph# 2.0 x10^3/UL 0.7-4.9 Owsley# 0.4 x10^3/UL 0.1-0.9 Gran % 60.7 % 42.2-75.2 Lymph % 32.8 % 20.5-51.1 Owsley% 6.5 % 1.7-9.3 Laboratory test finding 11/20/2015 [facility]) TSH 5.17 mIU/L 0.50-6.00 20 Free T4 1.06 ng/dL 0.75-1.54 Vitamin D25 22 Low 30-100 Pap W/RFX High Risk 11/20/2015 [facility] Diagn See Comment: 21 HPV [address] [place] [address] ([phone] - Adeq See Comment: 22 [email or web address] See Comment: 23 Perfor See Comment: 24 Comm . Note See Comment: 25 Iglbp See Comment: 26 Reflex See Comment: 27 Laboratory test 11/20/2015 [facility] PDF [id number] SEE IMAGE finding [address] [place] [address] ([phone] - Vaginitis Dna 09/04/2014 [facility] Screen Trichomonas NEGATIVE Affirm [address] [place] [address] [phone] Screen Gardnerella Vaginalis Dna NEGATIVE Screen Daily Species Dna POSITIVE Laboratory test 09/04/2014 [facility] Wet Prep ? few hyphae, finding (607)- - (Fma,CMC,CX) + Ua - Non Micro 11/10/2013 [facility] Appearance clear ([facility]) (607)- - Color yellow Glucose - Bilirubin - Ketones - SP Grav 1.025 Blood - PH 6.0 Protein - Urobil 0.2 Nitrite - Leukocytes ([facility]) - Laboratory test finding 11/10/2013 [facility]) Vitamin D25 28 Low 30-100 28 TSH 3.48 mIU/L 0.50-6.00 Comprehensive Metabolic 10/31/2013 [facility]) Sodium 141 mEq/L 134-149 Prof Potassium 4.5 mEq/L 3.6-5.5 Chloride 101 mEq/L 94-112 Carbon Dioxide 23 mEq/L 21-32 Glucose 102 mg/dL 70-105 BUN 18 mg/dL 6-26 Creatinine 0.7 mg/dL 0.6-1.4 BUN/Creat Ratio 25.7 CALC 8.0-36.0 Calcium 8.9 mg/dL 8.6-10.2 Total Protein 7.1 g/dL 6.3-8.1 Albumin 4.3 g/dL 3.8-5.5 Globulin 2.8 g/dL 2.0-4.8 A/G Ratio 1.5 CALC 0.6-2.3 Alk. Phosphatase 62 U/L 30-110 Alt (SGPT) 13 U/L 7-35 Ast (Sgot) 16 U/L 5-34 Total Bilirubin 0.7 mg/dL 0.2-1.3 Lipid Profile 10/31/2013 [facility]) Cholesterol 212 mg/dL High 120-200 Triglycerides 95 mg/dL 30-200 HDL Cholesterol 43 mg/dL 30-85 LDL (Calculated) 150 CALC High 0-129 VLDL Cholesterol 19 mg/dL 0-50 HDL Risk Factor 4.9 CALC High 0.0-4.4 Complete Blood Count 10/31/2013 [facility]) WBC 9.3 x10^3/UL 3.6 -9.6 RBC 4.52 x10^6/UL 3.90-5.70 HGB 11.1 g/dL Low 12.1-17.2 HCT 35 % Low 36-50 MCV 77.0 fL Low 82.2-97.4 MCH 24.6 pg Low 27.6-33.3 MCHC 32.0 g/dL Low 33.0-35.5 RDW 11.6 % 11.6-13.7 PLT 282 x10^3/UL 150-400 MPV 7.9 fL 7.4-10.4 Gran # 7.3 x10^3/UL High 1.5-7.2 Lymph# 1.5 x10^3/UL 0.7-4.9 Owsley# 0.5 x10^3/UL 0.1-0.9 Gran % 76.6 % High 42.2-75.2 Lymph % 17.2 % Low 20.5-51.1 Owsley% 6.2 % 1.7-9.3 Comprehensive Metabolic 08/19/2012 [facility]) Albumin 4.9 g/dL 3.8-5.5 Prof Alk. Phos. 53 U/L 30-110 Alt (SGPT) 14 U/L 7-35 Ast (Sgot) 19 U/L 5-34 BUN 22 mg/dL 6-26 Calcium 9.3 mg/dL 8.6-10.2 Chloride 103 mEq/L 94-112 Creatinine 0.8 mg/dL 0.6-1.4 Carbon Dioxide 25 mEq/L 21-32 Glucose 95 mg/dL 70-105 Sodium 140 mEq/L 134-149 Total Bilirubin 0.9 mg/dL 0.2-1.3 Total Protein 7.6 g/dL 6.3-8.1 Potassium 4.6 mEq/L 3.6-5.5 Globulin 2.7 g/dL 2.0-4.8 A/G Ratio 1.8 Calc 0.6-2.2 BUN/Creat Ratio 28.5 Calc 8.0-36.0 Lipid Profile 08/19/2012 [facility] Scales([facility]) Cholesterol 230 mg/dL High 120-200 HDL 50 mg/dL 30-85 Triglycerides 115 mg/dL 30-200 HDL Risk Factor 4.6 CALC High 0.0-4.4 LDL (Calculated) 158 CALC High 0-129 VLDL (Calculated) 23 mg/dL 0-50 Laboratory test finding 08/19/2012 [facility] Loyda([facility]) TSH 2.94 mIU/L 0.50-6.00 CBC Electronic ([facility]) 08/19/2012 [facility] WBC 5.3 3.6-9.6 (607)- - RBC 4.89 3.90-5.70 Hemoglobin (Fma/CMC/CTX) 12.0 g/dL Low 12.1 - 17.2 Hematocrit (Fma/CMC/CTX) 37.4 % 36.1 - 50.3 Platelets 282 10^3/ul 150-400 Lymph% 30.9 20.5-51.1 Mixed% 6.9 Neutrophils % 62.2 Mean Corpuscular Vol 76 Low 82.2-97.4 Mean Corpuscular Hemoglobin 24.6 Low 27.6-33.3 Mean Corpuscular Hemo Concen 32.2 32.0-36.0 RDW 11.7 11.6-13.7 Mean Platelet Volume 7.6 6.5-11.0 Laboratory 08/19/2012 [facility] Vitamin D, 25 20.5 ng/mL Low 30.0-100.0 29 test finding 28 [facility] [place] [address] [phone] Laboratory 08/18/2012 [facility] Thin Prep SEE NOTE 30 test finding 28 [facility] W/HPV([place] [address] S/Asc) [phone] Ua - Non Micro 08/18/2012 [facility] Appearance yellow (Fma) (607)- - Color clear Glucose neg Bilirubin neg Ketones neg SP Grav 1.020 Blood neg PH 7.0 Protein neg Urobil 0.2 Nitrite neg Leukocytes ([facility]ma/CMC/[facility]) neg Basic Metabolic Profile 08/10/2011 [place] L[facility]da(a) BUN 19 mg/dL 6- 26 Calcium 9.1 mg/dL 8.6-10.2 Chloride 99 mEq/L 94-112 Creatinine 0.7 mg/dL 0.6-1.4 Carbon Dioxide 24 mEq/L 21-32 Glucose 104 mg/dL 70-105 Sodium 144 mEq/L 134-149 Potassium 4.4 mEq/L 3.6-5.5 BUN/Creat Ratio 26.6 Calc 8.0-36.0 Laboratory test 08/10/2011 [facility] Loyda(a) TSH 4.81 mIU/L 0.50-6.00 finding Ua - Non Micro 08/10/2011 [facility] Appearance yellow (Fma) (607)- - Color clear Glucose neg Bilirubin neg Ketones neg SP Grav 1.020 Blood neg PH 6.5 Protein neg Urobil 0.2 Nitrite neg Leukocytes (Fma/CMC/[facility]) neg CBC Electronic (a) 08/10/2011 [facility] WBC 7.2 3.6-9.6 (607)- - RBC 5.19 3.90-5.70 Hemoglobin (Fma/CMC/CTX) 12.7 g/dL 12.1 - 17.2 Hematocrit (Fma/CMC/CTX) 39.7 % 36.1 - 50.3 Platelets 269 10^3/ul 150-400 Lymph% 22.1 20.5-51.1 Mixed% 5.1 Neutrophils % 72.7 Mean Corpuscular Vol 76 Low 82.2-97.4 Mean Corpuscular Hemoglobin 24.6 Low 27.6-33.3 Mean Corpuscular Hemo Concen 32.1 32.0-36.0 RDW 12.5 11.6-13.7 Mean Platelet Volume 8.1 6.5-11.0 Laboratory test 08/10/2011 [facility] Vitamin D, 16.7 ng/mL Low 30.0-100.0 31 finding [address] [id number] [phone] Laboratory test 08/10/2011 [facility] Thin Prep SEE NOTE 32 finding 28 [facility] W/HPV(Lsil/[place] [address] JONEL/Asc) [phone] Laboratory test 08/04/2010 [facility] Vitamin D, 29.4 ng/mL Low 32.0-100.0 33 finding [address] [id number] [phone] Laboratory test 08/04/2010 Camarena Loyda(a) TSH 3.10 mIU/L 0.50-6.00 finding Basic Metabolic 08/04/2010 [facility]rena Loyda(a) BUN 16 mg/dL 6-26 Profile Calcium 9.4 mg/dL 8.6-10.2 Chloride 103 mEq/L 94-112 Creatinine 0.7 mg/dL 0.6-1.4 Carbon Dioxide 21 mEq/L 21-32 Glucose 91 mg/dL 70-105 Sodium 137 mEq/L 134-149 Potassium 4.5 mEq/L 3.6-5.5 BUN/Creat Ratio 21.6 Calc 8.0-36.0 Ua - Non Micro (Fma) 08/04/2010 Family [facility] Appearance CLEAR (607)- - Color YELLOW Glucose, Urine (Fma/CMC/CTX) NEG Bilirubin NEG Ketones NEG SP Grav 1.020 Blood NEG PH 6.5 Protein NEG Urobil 0.2 Nitrite NEG Leukocytes (Fma/CMC/[facility]) NEG Laboratory 08/04/2010 [facility] Thin Prep SEE NOTE 34 test finding 28 [facility] W/HPV(Lsil/ALLY/Asc) [place], [place] [id number] [phone] Laboratory 07/31/2010 [facility] HCG, Quantitative 4 mIU/mL 35, 36 test finding 28 [place] [address] [phone] Progesterone 44.40 ng/mL 37 Laboratory test 06/11/2010 [facility] HCG, Quantitative <2 mIU/mL 38, 39 finding 28 [place] [address] [phone] Lipid Profile 10/27/2009 [facility] Triglyceride 71 mg/dL 40-2 (Trig/Chol/HDL) 00 Cholesterol 189 mg/dL Less Than 200 40 High Density Lipoprotein 43 mg/dL 40-60 41 Cholesterol/HDL Ratio 4.40 AVERAGE 1-4.44 Low Density Lipoprotein 132 mg/dL High Less Than 100 42 Laboratory test finding 10/27/2009 [facility] Thyroxine 7.5 g/dL 5-12 TSH 4.63 MIU/ML 0.34-5.60 FSH 6.60 MIU/ML 43 Lutenizing Hormone 1.91 MIU/ML 44 Prolactin 9.65 NG/ML 1.0-25.0 Progesterone 0.8 NG/ML 45 Estradiol 10/27/2009 [facility] Estradiol 1.3 ng/dL () 46 %Free Estradiol 3.1 % () 47 Free Estradiol 0.40 pg/mL () 48 Sex Hormone Binding Globulin 28 nmol/L () 49 Ua - Non Micro (Fma) 04/16/2009 [facility] Appearance clear (407)- - Color yellow Glucose - Bilirubin - Ketones - SP Grav 1.020 Blood - PH 6.0 Protein - Urobil 0.2 Nitrite - Leukocytes (Fma/CMC/[facility]) - Laboratory test 04/16/2009 [facility] Thin Prep SEE NOTE 50 finding 28 [facility] W/HPV(Lsil/ALLY/[place]) [place] [address] [phone] Ua - Micro 01/21/2009 Family [facility] Appearance clear (Fma) (607)- - Color yellow Glucose neg Bilirubin neg Ketones neg SP Grav 1.015 Blood neg PH 6.5 Protein neg Urobil 0.2 Nitrite neg Leukocytes (Fma/CMC/[facility]) trace # Hyaline - /Lpf Granular - /Lpf WBC (Fma,[facility]) 3-5 # RBC 0-1 # Mucus - /Lpf Epith few /Lpf # Bacteria 1+ /Hpf # Amorphous - /Lpf Crystals, Fluid (Fma/CMC/CTX) - Z#Comments - Complete Blood Count 01/21/2009 [facility] Loyda(a) WBC 6.2 x10^3/uL 3.6 -9.6 Gran# 3.6 x10^3/uL 1.5-7.2 Gran% 58.6 % 42.2-75.2 HCT 37 % 36-50 HGB 12.0 g/dL Low 12.1-17.2 Lymph# 2.1 x10^3/uL 0.7-4.9 Lymph% 33.2 % 20.5-51.1 MCH 24.3 pg Low 27.6-33.3 MCV 75.0 fL Low 82.2-97.4 MCHC 32.4 g/dL Low 33.0-35.5 Mo# 0.5 x10^3/uL 0.1-0.9 Mo% 8.2 % 1.7-9.3 MPV 9.1 fL 7.4-10.4 PLT 330 x10^3/uL 150-400 RBC 4.92 x10^6/uL 3.90-5.70 RDW 12.5 % 11.6-13.7 Comprehensive Metabolic 01/21/2009 Camarena Loyda([facility]) Albumin 4.2 g/dL 3.8-5.5 Prof Alk. Phos. 55 U/L 30-110 Alt (SGPT) 15 U/L 7-35 Ast (Sgot) 19 U/L 5-34 BUN 19 mg/dL 6-26 Calcium 9.1 mg/dL 8.6-10.2 Chloride 103 mEq/L 94-112 Creatinine 0.8 mg/dL 0.6-1.4 Carbon Dioxide 32 mEq/L 21-32 Glucose 83 mg/dL 70-105 Sodium 143 mEq/L 134-149 Total Bilirubin 0.6 mg/dL 0.2-1.3 Total Protein 7.5 g/dL 6.3-8.1 Potassium 4.9 mEq/L 3.6-5.5 Globulin 3.3 g/dL 2.0-4.8 A/G Ratio 1.3 Calc 0.6-2.2 BUN/Creat Ratio 24.8 Calc 8.0-36.0 Laboratory test finding 01/21/2009 Camarena Loyda([facility]) TSH 4.42 mIU/L 0.50-6.00 Complete Blood Count 01/19/2008 C[facility]rena Loyda([facility]) WBC 5.6 x10^3/u 3.6- 9.6 51 Gran# 3.5 x10^3/u 1.5-7.2 Gran% 63.2 % 42.2-75.2 HCT 34 % Low 36-50 HGB 11.2 g/dL Low 12.1-17.2 Lymph# 1.7 x10^3/u 0.7-4.9 Lymph% 30.9 % 20.5-51.1 MCH 25.5 pg Low 27.6-33.3 MCV 78.3 fL Low 82.2-97.4 MCHC 32.6 g/dL Low 33.0-35.5 Mo# 0.3 x10^3/u 0.1-0.9 Mo% 5.9 % 1.7-9.3 MPV 8.9 fL 7.4-10.4 PLT 298 x10^3/u 150-400 RBC 4.37 x10^6/u 3.90-5.70 RDW 12.3 % 11.6-13.7 Comprehensive Metabolic 01/19/2008 Migue Loyda([facility]) Albumin 4.4 g/dL 3.8-5.5 Prof Alk. Phos. 44 U/L 30-110 Alt (SGPT) 11 U/L 7-35 Ast (Sgot) 19 U/L 5-34 BUN 20 mg/dL 6-26 Calcium 9.2 mg/dL 8.6-10.2 Chloride 100 mEq/L 94-112 Creatinine 0.8 mg/dL 0.6-1.4 Carbon Dioxide 24 mEq/L 21-32 Glucose 84 mg/dL 70-105 Sodium 138 mEq/L 134-149 Total Bilirubin 0.6 mg/dL 0.2-1.3 Total Protein 7.2 g/dL 6.3-8.1 Potassium 4.0 mEq/L 3.6-5.5 Globulin 2.9 g/dL 2.0-4.8 A/G Ratio 1.5 Calc 0.6-2.2 BUN/Creat Ratio 24.2 Calc 8.0-36.0 Laboratory test 01/19/2008 Camarena Loyda([facility]) Free T4 1.43 ng/dL 0.75- 1.54 finding TSH 4.08 mIU/L 0.50-6.00 Lipid Profile 01/19/2008 Camarena Loyda([facility]) Cholesterol 198 mg/dL 120- 200 HDL 47 mg/dL 30-85 Triglycerides 82 mg/dL 30-200 HDL Risk Factor 4.2 CALC 4.2-7.0 LDL (Calculated) 135 CALC High 0-129 VLDL (Calculated) 16 mg/dL 0-50 Ua - Non Micro ([facility]) 01/19/2008 Family [facility] Appearance CLEAR (607)- - Color YELLOW Glucose, Urine ([facility]/CTX) NEG Bilirubin NEG Ketones NEG SP Grav 1.020 Blood NEG PH 0.2 Protein NEG Urobil 0.2 Nitrite NEG Leukocytes ([facility]) NEG Laboratory test 11/16/2006 [facility] HCG Qualitative POSITIVE Abnormal Negative finding CBC With Electronic 11/16/2006 [facility] White Blood Count 15.0 CUMM High 4.8- 10.8 Diff Stat Hematocrit 35 % 35-47 Hemoglobin 11.8 g/dL Low 12.0-16.0 Mean Corpuscular HGB Cone 33 g/dL 32-36 Mean Corpuscular Hemoglob 25 pg Low 27-31 Mean Corpuscular Volume 75 um3 Low 79-97 Mean Platelet Volume 8.6 um3 7.4-10.4 Platelet Count 322 CUMM 150-450 Red Cell Count 4.70 CUMM 4.2-5.4 Redcell Distribution WDTH 13 % 10.5-15 Urinalysis Stat 11/16/2006 [facility] Ua Color STRAW Appearance-Urine HAZY Bilirubin-Ur NEGATIVE Negative Blood-Urine TRACE Abnormal Negative Esterase-Urine NEGATIVE Negative Glucose-Urine NEGATIVE Negative Ketones-Urine NEGATIVE Negative Nitrite NEGATIVE Negative PH-Urine 6.0 5-9 Protein-Urine NEGATIVE Negative Atxsfgwalymj-[id number]-QWB NEGATIVE Negative Specific [place]-Ur 1.008 Low 1.010-1.030 Amylase Stat 11/16/2006 [facility] Amylase 87 U/L 30-125 Laboratory test finding 11/16/2006 [facility] BHCG Quantitative 61.0 MIU/ML High 0-5 52 Lipase 30 U/L 22-51 Comp Stat 11/16/2006 [facility] One Over Creatinine 1.42 Anion Gap 8.0 mmol/L 2-11 53 Albumin/Globulin Ratio 1.2 1-3 Albumin 4.2 GM/DL 3.6-5.4 Alkaline Phosphatase 58 U/L 30-110 Alt (SGPT) 82 U/L High 14-54 Ast (Sgot) 136 U/L High 12-42 BUN 13 mg/dL 6-24 Calcium 10.3 mg/dL High 8.7-10.2 Chloride 102 mmol/L 101-111 Co2 (Carbon Dioxide) 28.0 mmol/L 22-32 Globulin 3.4 GM/DL 2-4 Glucose 105 mg/dL 70-105 Potassium 4.0 mmol/L 3.5-5.0 Sodium 138 mmol/L 135-145 Bilirubin Total 0.9 mg/dL 0.4-1.5 Total Protein 7.6 GM/DL 6.2-8.1 BUN/Creatinine Ratio 18.6 8-20 Creatinine 0.7 mg/dL 0.5-1.4 Urinalysis W/Microscopic 11/16/2006 [facility] Ua Color STRAW Appearance-Urine HAZY Bacteria-Urine 2+ Bilirubin-Ur NEGATIVE Negative Blood-Urine TRACE Abnormal Negative Epith Cells-Ur MANY Esterase-Urine NEGATIVE Negative Glucose-Urine NEGATIVE Negative Ketones-Urine NEGATIVE Negative Nitrite NEGATIVE Negative PH-Urine 6.0 5-9 Protein-Urine NEGATIVE Negative RBC-Urine 0-2 0-2 Ezoqhocnngfc-Ke-JES NEGATIVE Negative Specific [place]-Ur 1.008 Low 1.010-1.030 WBC-Urine 0-2 0-5 CBC With Manual Diff Stat 11/16/2006 [facility] White Blood Count 15.0 CUMM High 4.8-10.8 Absolute Neutrophil Count 12.6 Atypical Lymph 1 % 0-6 Band Neutrophil 1 % 0-8 Hematocrit 35 % 35-47 Hemoglobin 11.8 g/dL Low 12.0-16.0 Eosenophil 1 % 0-6 Hypochromasia SLIGHT Lymphocyte 7 % 5-47 Mean Corpuscular HGB Cone 33 g/dL 32-36 Mean Corpuscular Hemoglob 25 pg Low 27-31 Mean Corpuscular Volume 75 um3 Low 79-97 Microcytosis SLIGHT Monocyte 7 % 0-13 Mean Platelet Volume 8.6 um3 7.4-10.4 Platelet Count 322 CUMM 150-450 Polysegmented Neutrophil 83 % 38-83 Red Cell Count 4.70 CUMM 4.2-5.4 Redcell Distribution WDTH 13 % 10.5-15 Ua - Micro ([facility]) 07/23/2006 Family [facility] Appearance CLEAR (607)- - Color YELLOW Glucose NEG Bilirubin NEG Ketones NEG SP Grav 1.015 Blood NEG PH 7.0 Protein, Random Urine NEG Urobil 0.2 Nitrite NEG Leukocytes (Fma/[facility]) MODERATE Hyaline - /Lpf Granular - /Lpf WBC, Fluid 3-4 RBC, Fluid - Mucus - /Lpf Epith MANY /Lpf Bacteria TR-1 /Hpf Amorphous - /Lpf Crystals, Urine (Fma/CMC/CTX) - /Lpf Misc NOT CLEAN CATCH Urine ([facility]) 07/23/2006 [facility] Medicine SP Grav 1.015 (607)- - Urine, (Fma/CMC/CTX) NEGATIVE Laboratory test 02/02/2006 [facility] HCG, Quantitative <2 mIU/mL 54, 55 finding 28 [place] [address] [phone] Laboratory test 2006 [facility] Progesterone 0.87 ng/mL 56 finding 28 [place] [address] [phone] Laboratory test 01/11/2006 [facility] Progesterone 0.77 ng/mL 57, 58 finding 28 [place] [address] [phone] Ua - Non Micro 12/10/2004 Family [facility] Appearance CLEAR ([facility] New) (607)- - Color LT YELLOW Glucose NEG Bilirubin NEG Ketones NEG SP Grav 1.015 Blood NEG LMP 10/18/04 PH 6.0 Protein NEG Urobil 0.2 Nitrite NEG Leukocytes NEG Comp Metabolic 12/10/2004 [facility] Medicine Glucose, Serum 86 mg/dL 70- 105 ([facility]) Female (607)- - (Fma/CMC/CTX) BUN (Fma/CMC/[facility]) 13 mg/dL 6-26 Creatinine, Serum 0.7 mg/dL 0.6-1.4 BUN/Creatinin Ratio 18.1 8.0-36 Sodium 142 134-149 Potassium 3.9 3.6-5.5 Chloride 104 mEq/L 94-112 Co2 30 21-32 Calcium (a/[facility]) 9.2 mg/dL 8.6-10.2 Total Protein 7.9 g/dL 6.3-8.1 Albumin ([facility]) 4.4 3.8-5.5 Globulin 3.5 2.0-4.8 A/G Ratio (A/G Ratio) 1.3 0.6-2.2 Alkaline Phosphatase (F/C/CTX) 47 U/L 30-110 Alt (SGPT) (a/CMC/[facility]) 7 Low 10-40 Ast (Sgot) (a/[facility]) 17 U/mL 5-34 Bilirubin, Total 0.5 mg/dL 0.2-1.3 CBC Electronic ([facility]) 12/10/2004 Family [facility] WBC 5.0 3.6-9.6 (607)- - Lymphocytes 42.2 % 20.5 - 51.1 Monocytes 5.1 % 1.7-9.3 Granulocytes 52.7 % 42.2 - 75.2 Lymphocytes 2.1 10^3/uL 0.7 - 4.9 Monocytes 0.3 10^3/uL 0.1 - 0.9 Granulocytes 2.6 10^3/uL 1.5 - 7.2 RBC 4.92 3.90-5.70 Hemoglobin (a/CMC/CTX) 12.3 g/dL 12.1 - 17.2 Hematocrit (a/CMC/CTX) 38.1 % 36.1 - 50.3 Mean Corpuscular Vol 77.5 Low 82.2-97.4 Mean Corpuscular Hemaglobin 24.9 Low 27.6-33.3 Mean Corpuscular Hemo Concen 32.2 Low 33.0-36.0 RDW 12.1 11.6-13.7 Platelets 348. 10^3/ul 150-400 Mean Platelet Volume 8.4 7.4-10.4 Comp Metabolic ([facility]) 01/29/2004 [facility] Sodium 134 mmol/L Low 135-145 Potassium 4.0 mmol/L 3.5-5.0 Chloride 105 mmol/L 101-111 Co2 23.0 mmol/L 22-32 Anion Gap 6.0 mmol/L 2-11 Glucose, Serum (Fma/CMC/CTX) 121 mg/dL High 70-105 BUN (Fma/[facility]) 21 mg/dL 6-24 Creatinine (Fma/CMC/CTX) 0.6 mg/dL 0.5-1.4 BUN/Creatinin Ratio 35.0 High 8-20 Calcium (Fma/[facility]) 9.1 mg/dL 8.7-10.2 Total Protein 7.3 GM/DL 6.2-8.1 Albumin (Fma/[facility]) 4.0 3.6-5.4 Globulin 3.3 2-4 A/G Ratio (Fma/CMC/[facility]) 1.2 1-3 Bilirubin, Total 0.7 mg/dL 0.4-1.5 Alkaline Phosphatase (F/C/CTX) 46 U/L 30-110 Alt (SGPT) (a/CMC/[facility]) 15 14-54 Ast (Sgot) (a/CMC/[facility]) 20 12-42 Laboratory test finding 01/29/2004 [facility] Amylase 87 U/L 30-125 CBC W/ Manual Diff ([facility]) 01/29/2004 [facility] WBC 13.5 CUMM High 4.8-10.8 RBC 4.73 CUMM 4.2-5.4 Hemoglobin (a/CMC/CTX) 11.8 g/dL Low 12.0-16.0 Hematocrit (a/CMC/CTX) 36 % 35-47 Mean Corpuscular Vol 76 UM3 Low 79-97 Mean Corpuscular Hemaglobin 25 pg Low 27-31 Mean Corpuscular Hemo Concen 33 g/dL 32-36 RDW 12 10.5-15 Platelets 271 CUMM 150-450 Mean Platelet Volume 8.4 7.4-10.4 Poly From [facility] 70 38-83 Band - 0-8 Lymph From [facility] 16 5-47 Monocytes 2 % 0-13 Eosinophils 12 High 0-6 Atypical Lymph - 0-6 Morphology - Basophils - Laboratory test finding 01/29/2004 [facility] Hypochrom SLIGHT Ua - Micro ([facility]) 01/29/2004 [facility] Color YELLOW Appearance CLEAR SP Grav 1.019 1.010-1.030 Esterase NEG Negative Nitrite NEG Negative Urobil NEG Negative Protein NEG Negative PH 6.0 5-9 Blood TRACE High Negative Ketones NEG Negative Bilirubin, Micro NEG Negative Glucose NEG Negative WBC'S 0-2 0-5 RBC'S 0-2 0-2 Epith MANY Bacteria 2+ Laboratory test finding 01/29/2004 [facility] Amorphous TRACE Laboratory test finding 02/13/2003 [facility] Free T-3 3.5 pg/mL 2.3-4.[address] [place], [place] [id number] [phone] Thyroid Peroxidase AB <10.00 IU/mL 0.0 - 35.0 Free T4/TSH 02/13/2003 [facility] TSH 6.24 High 0.5-6.0 (Fma/CMC/[facility]) (607)- - (Fma/CMC/[facility]) uIU/ml Free T4 (Fma/CMC/[facility]) 1.03 ng/dL 0.75-1.54 Laboratory test 01/22/2003 [facility] Thyroxine,Total(T4) 11.03 g/dL 5-12 finding (F/C/CTX) Rubella Igg Antibodies IMMUNE Immune Free T4/TSH 01/22/2003 [facility] TSH (Fma/CMC/[facility]) 7.4 High 0.34-5.60 (Fma/CMC/[facility]) Free T4 (Fma/CMC/[facility]) 0.89 ng/dL 0.58-1.64 Laboratory test 01/22/2003 [facility] Glucose, Serum 92 mg/dL 70-105 finding (Fma/CMC/CTX) Ua - Micro (a 12/26/2002 [facility] Appearance CLOUDY RED New) (607)- - Glucose NEGATIVE Bilirubin NEGATIVE Ketones NEGATIVE SP Grav 1.015 Blood MODERATE PH 5.5 Protein NEGATIVE Urobil 0.2 Nitrite NEGATIVE Leukocytes SMALL Hyaline - /Lpf Granular - /Lpf WBC'S 10-15 RBC'S TNTC Mucus - /Lpf Epith FEW Bacteria 2+ Amorphous - /Lpf Crystals - /Lpf Comments LMP: 4-5-03 Laboratory test finding 12/24/2001 [facility] Urine C&S NO GROWTH DAY 2 Final Ua - Micro ([facility]) 12/24/2001 [facility] Color STRAW Appearance CLEAR SP Grav 1.012 1.010-1.030 Esterase NEG Negative Nitrite NEG Negative Urobil NEG Negative Protein NEG Negative PH 8.0 5-9 Blood 1+ High Negative Ketones NEG Negative Bilirubin, Micro NEG Negative Glucose NEG Negative WBC'S 2-5 RBC'S 5-10 Epith FEW Bacteria 1+ Laboratory test finding 12/24/2001 [facility] Microcytosis 1+ Hypochrom 1+ Target Cells FEW SP Grav 1.013 1.010-1.030 Urine NEGATIVE Negative CBC With Manual Diff ([facility]) 12/24/2001 [facility] WBC 13.9 High 4.8-10.8 RBC 4.39 4.2-5.4 Hemoglobin 11.0 g/dL Low 12.0-16.0 Hematocrit 33 % Low 35-47 Mean Corpuscular Vol 76 Low 79-97 Mean Corpuscular Hemaglobin 25 Low 27-31 Mean Corpuscular Hemo Concen 33 32-36 RDW 12 10.5-15 Platelets 323 CUMM 150-450 Mean Platelet Volume 8.3 7.4-10.4 Poly From [facility] 72 38-83 Band 1 0-8 Lymph From [facility] 17 5-47 Owsley From [facility] 4 0-13 Eos From [facility] 1 0-6 Atypical Lymph 5 0-6 Morphology - Basophils - Laboratory test finding 12/24/2001 [facility] Amylase 44 U/L 28-100 Comp Metabolic ([facility]) 12/24/2001 [facility] Sodium 135 mmol/L 135-145 Potassium 4.1 3.5-5.0 Chloride 98 mmol/L 95-108 Co2 24.7 21-33 Glucose 84 mg/dL 70-105 BUN 10 6-22 Creatinine 0.7 mg/dL 0.5-1.4 BUN/Creatinin Ratio 14.3 8-20 Calcium 9.3 mg/dL 8.7-10.2 Total Protein 8.5 GM/DL High 6.2-8.1 Albumin 4.0 3.6-5.4 Globulin 4.5 High 2-4 Albumin / Globulin Ratio 0.9 Low 1-3 Bilirubin, Total 0.3 mg/dL 0.1-1.0 Alkaline Phosphatase 71 U/L 30-110 Alt (SGPT) 10 1-40 Ast (Sgot) 19 1-34 Ua - Micro ([facility]) 06/21/1999 [facility] Color YELLOW Appearance CLOUDY SP Grav 1.018 1.010-1.030 Esterase NEGATIVE Negative Nitrite NEGATIVE Negative Urobil NEGATIVE Negative Protein NEGATIVE Negative PH 8 5-9 Blood 3+ High Negative Ketones NEGATIVE Negative Bilirubin, Micro NEGATIVE Negative Glucose NEGATIVE Negative WBC N/A RBC 0-2 Mucus 5 Epith OCCASIONAL 59 Bacteria N/A Laboratory test finding 06/21/1999 [facility] Qual HCG NEGATIVE Negative CBC Electronic ([facility]) 06/21/1999 [facility] WBC 12.1 CUMM High 4.8-10.8 RBC 4.39 CUMM 4.2-5.4 Hemoglobin 11.1 g/dL Low 12.0-16.0 Hematocrit 34 % Low 35-47 Mean Corpuscular Vol 77 um3 Low 79-97 Mean Corpuscular Hemaglobin 25 pg Low 27-31 Mean Corpuscular Hemo Concen 33 g/dL 32-36 RDW 12 % 10.5-15 Platelets 265 CUMM 150-450 Mean Platelet Volume 8.7 um3 7.4-10.4 Granulocytes 69.9 % 38-83 Lymphocytes 20.0 % 20-45 Monocytes 7.3 % 1-9 Eosinophil 2.2 % 0-6 Basophil% 0.6 % 0-2 Abs Lymphs 2.4 1.0-4.8 Abs Mononuclear 0.9 High 0-0.8 Abs Grans 8.4 High 1.5-7.7 Abs Eosinophils 0.3 0-0.6 Abs Basophils 0.1 0-0.2 1 RESULTS VERIFIED BY REPEAT ANALYSIS 2 RESULTS VERIFIED BY REPEAT ANALYSIS 3 RESULTS VERIFIED BY REPEAT ANALYSIS 4 1 sst 5 consistent w/ previous results 6 consistent w/ previous results 7 [id number] SEE RESULT BELOW Name: SMITA METZGER : [address]: Melanie Gao Acct: [id number] Unit: [id number] AGE: 41 Location: [facility] Re12/18/16 SEX: F Status: DEP ER SPEC: [id number] IGGY: 12/18/16-[address] [facility] [address]: Melanie Garcia DO REQ: [id number] RECD: 12/18/16 STATUS: GUILLAUME SYKES DR: Kathryn Lopes MD _ SOURCE: URINE SPDESC: ORDERED: Urine Culture COMMENTS: [id number] Procedure Result Reported Site Urine Culture Final 12/20/16- 0857 ML No Growth (<1,000 CFU/mL) * ML - MAIN LAB ([facility]) . END OF REPORT * ML=Testing performed at Main Lab DEPARTMENT OF PATHOLOGY, [address] [place] [address] Justo Montgomery M.D. Director [facility] # [id number] 9 Manager Learning: [id number] If is still suspected, please repeat test after 48 to 72 hours. 10 Manager Learning: [id number] RESULTS VERIFIED BY REPEAT ANALYSIS 12 1 SST 13 Non Reactive: Inconsistent with immunity, less than 10 mIU/mL Reactive: Consistent with immunity, greater than 9.9 mIU/mL 14 Negative: < 0.8 Indeterminate: 0.8 - 0.9 Positive: > 0.9 The CDC recommends that a positive HCV antibody result be followed up with a HCV Nucleic Acid Amplification test (344636). 15 1 sst 16 FASTING 17 consistent w/ previous results 18 consistent w/ previous results 19 consistent w/ previous results 20 FASTING 21 NEGATIVE FOR INTRAEPITHELIAL LESION AND MALIGNANCY. 22 Satisfactory for evaluation. Endocervical and/or squamous metaplastic cells (endocervical component) are present. 23 Z12.4 24 Handy Gilbert, Flute Grinder (ASCP) 25 The Pap smear is a screening test designed to aid in the detection of premalignant and malignant conditions of the uterine cervix. It is not a diagnostic procedure and should not be used as the sole means of detecting cervical cancer. Both false-positive and false-negative reports do occur. 26 This liquid based ThinPrep(R) pap test was screened with the use of an image guided system. 27 The HPV DNA reflex criteria were not met with this specimen result therefore, no HPV testing was performed. 28 FASTING 29 Vitamin D deficiency has been defined by the [place] of Medicine and an Endocrine Society practice guideline as a level of serum 25-OH vitamin D less than 20 ng/mL (1,2). The Endocrine Society went on to further define vitamin D insufficiency as a level between 21 and 29 ng/mL (2). 1. IOM ([place] of Medicine). 2010. Dietary reference intakes for calcium and D. [place]: The National Academies Press. 2. Sea MF, Chiqui [place], Román [place], et al. Evaluation, treatment, and prevention of vitamin D deficiency: an Endocrine Society clinical practice guideline. JCEM. 2010; 96(7):1911-30. 30 [employer], [employer]. DEPARTMENT OF PATHOLOGY or Extension 8244 [employer] PROFESSOR CYTOLOGY REPORT PATIENT: SMITA METZGER V : 1975 AGE: 37 Y SEX: F ACCT: [id number] PROCEDURE DATE: 08/18/2012 DATE RECEIVED: 08/19/2012 REQUESTING PHYSICIAN: KATHRYN LOPES MD [place] [facility] [id number] PATIENT DATA: [id number] SPECIMEN SUBMITTED: * * (HPVII) THIN PREP W/HPV (LSIL/ASC/ALLY) * * ENDOCERVICAL RELEVANT HISTORY: LMP: 08/09/2012 Prev.normal: 07/2011 SPECIMEN ADEQUACY SATISFACTORY FOR EVALUATION, ENDOCERVICAL TRANSFORMATION ZONE COMPONENT PRESENT GENERAL CATEGORIZATION NEGATIVE FOR INTRAEPITHELIAL LESIONS OR MALIGNANCY COMMENTS Thin Prep Pap tests are examined with an FDA approved location-guidance system. ADDITIONAL COPIES SENT TO: Screened/Rescreened Electronically Signed Sign Out Date/Time: by: by: SAMANTHA WALLACE, 08/19/2012 12:31 CT(ASCP) Note: The Pap smear is a screening test designed to aid in the detection of premalignant and malignant conditions of the uterine cervix. It is not a diagnostic procedure and should not be used as the sole means of detecting cervical cancer. Both false-positive and false-negative reports do occur. 00 UA Pap Smear performed at [facility] Dir: [place], [address] [place] [id number] supervisor public health nursing [facility] Dir: Lee Clinton MD, [address] [facility] [id number] [facility] [place] Dir: Zach Da Silva MD, [address] [place] [id number] For inquiries regarding HPV test results, the physician may contact [facility]: [phone] "" 31 Vitamin D deficiency has been defined by the [place] of [employer] and an Endocrine Society practice guideline as a level of serum 25-OH vitamin D less than 20 ng/mL (1,2). The Endocrine Society went on to further define vitamin D insufficiency as a level between 21 and 29 ng/mL (2). 1. IOM ([place] of Medicine). 2011. Dietary reference intakes for calcium and D. [place]: The National Academies Press. 2. Sea MF, Chiqui KELLY, Román NEWTON, et al. Evaluation, treatment, and prevention of vitamin D deficiency: an Endocrine Society clinical practice guideline. JCEM. 2010; 96(7):1911-30. Please note reference interval change 32 [employer]. DEPARTMENT OF PATHOLOGY or Extension 8299 NAT[employer] SCIENCES PROFESSOR CYTOLOGY REPORT PATIENT: SMITA METZGER V : 1975 AGE: 36 Y SEX: F ACCT: [id number] PROCEDURE DATE: 08/10/2011 DATE RECEIVED: 08/11/2011 REQUESTING PHYSICIAN: ASIYA ROWE MD [place]: [facility] [id number] PATIENT DATA: [id number] SPECIMEN SUBMITTED: * * (HPVII) THIN PREP W/HPV (LSIL/ASC/ALLY) * * CERVICAL/ENDOCERVICAL RELEVANT HISTORY: LMP: 07/20/2011 Prev.normal: YR AGO Menarche: Y SPECIMEN ADEQUACY SATISFACTORY FOR EVALUATION, ENDOCERVICAL TRANSFORMATION ZONE COMPONENT PRESENT GENERAL CATEGORIZATION NEGATIVE FOR INTRAEPITHELIAL LESIONS OR MALIGNANCY RECOMMENDATIONS Thin Prep Pap tests are examined with an FDA approved location-guidance system. ADDITIONAL COPIES SENT TO: Screened/Rescreened Electronically Signed Sign Out Date/Time: by: by: SAMANTHA WALLACE, 08/12/2011 13:01 CT(ASCP) The Pap smear is a screening test designed to aid in the detection of premalignant and malignant conditions of the uterine cervix. It is not a diagnostic procedure and should not be used as the sole means of detecting cervical cancer. Both false-positive and false-negative reports do occur. Performed @ [facility] [address] [place] [address] [place] [address] 33 Recent studies consider the lower limit of 32.0 ng/mL to be a threshold for optimal health. Luke BW. J Nutr. 2005 Oct;135(2):317-22. 34 [employer]. 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 [id number] PATIENT DATA: [id number] SPECIMEN SUBMITTED: * * (HPVII) THIN PREP W/HPV (LSIL/ASC/ALLY) * * ENDOCERVICAL RELEVANT HISTORY: LMP: 06/17/2010 Prev.abnormal: 04/2009 DAILY Menarche: Y Comment: PREVIOUS THERAPY:HORMONES SPECIMEN ADEQUACY SATISFACTORY FOR EVALUATION, ENDOCERVICAL TRANSFORMATION ZONE COMPONENT PRESENT GENERAL CATEGORIZATION NEGATIVE FOR INTRAEPITHELIAL LESIONS OR MALIGNANCY ADDITIONAL COPIES SENT TO: Screened/Rescreened Electronically Signed Sign Out Date/Time: by: by: SAMANTHA WALLACE, 08/06/2010 10:50 CT(ASCP) Thin Prep Pap tests are examined with an FDA-approved location-guidance system (72961). Performed @ [facility] [address] [place] [id number] FASTING; 1 SST 36 . Less than 5: Negative for 6 - 25: Indeterminate for , and Suggest recollection in 72 hrs Greater than 25: Positive for . NORMAL : Gestational Age HCG range (mIU/mL) 2-3 Weeks 100 - 1,000 3-4 Weeks 500 - 6,000 1-2 Months 5,000 - 200,000 2-3 Months 10,000 - 100,000 2nd Trimester 3,000 - 50,000 3rd Trimester 1,000 - 50,000 . Please Note: This test methodology is limited to the early detection of . False results can occur due to, but not limited to, the presence of heterophilic antibodies, non-specific protein binding, altered forms of HCG, HCG-like substances, trophoblastic or non-trophoblastic neoplasms. . 37 FEMALES: Normally Menstruating: Follicular Phase: 0.15-1.40 Luteal Phase : 3.34-25.56 Mid-Luteal Phase: 4.44-28.03 : First Trimester : 11.22-90.00 Second Trimester: 25.55-89.40 Third Trimester : 48.40-422.50 Postmenopausal......: ND*-0.73 *ND=not detectible MALES.................: 0.28-1.22 . 38 1sst 39 . Less than 5: Negative for 6 - 25: Indeterminate for , and Suggest recollection in 72 hrs Greater than 25: Positive for . NORMAL : Gestational Age HCG range (mIU/mL) 2-3 Weeks 100 - 1,000 3-4 Weeks 500 - 6,000 1-2 Months 5,000 - 200,000 2-3 Months 10,000 - 100,000 2nd Trimester 3,000 - 50,000 3rd Trimester 1,000 - 50,000 . Please Note: This test methodology is limited to the early detection of . False results can occur due to, but not limited to, the presence of heterophilic antibodies, non-specific protein binding, altered forms of HCG, HCG-like substances, trophoblastic or non-trophoblastic neoplasms. . 40 CHOLESTEROL INTERPRETATION: Desirable: Less than 200 MG/DL Borderline-High Risk: 200-239 MG/DL High-Risk: 240 MG/DL and over 41 HDL INTERPRETATION: Undesirable: High Risk: Less than 40 MG/DL Desirable: Low Risk: Greater than 60 MG/DL 42 LDL INTERPRETATION: Low Risk Optimal Level: LDL Less than 100 MG/DL Near or Above Optimal: LDL 100-129 MG/DL Borderline High Risk: LDL 130-159 MG/DL High Risk: LDL 160-189 MG/DL Very High Risk: LDL Greater than 189 MG/DL 43 NORMAL RANGE MALES 1 - 20 NORMALLY MENSTRUATING FEMALES - Follicular Phase 3 - 9 - Mid-Cycle Peak 4 - 23 - Luteal Phase 1 - 6 POSTMENOPAUSAL FEMALES 16 - 114 . 44 NORMAL RANGE MALES 2 - 12 NORMALLY MENSTRUATING FEMALES - Follicular Phase 1 - 18 - Mid-Cycle Peak 24 - 105 - Luteal Phase 0.6 - 20 POSTMENOPAUSAL FEMALES 15 - 62 . 45 FEMALE REFERENCE RANGES FOR Progesterone: Follicular phase.......0.3 - 1.5 ng/ml Mid-luteal phase.......5.2 - 18.5 ng/ml Postmenopausal.........< 0.8 ng/ml 1st trimester.........4.7 - 50.0 ng/ml 2nd trimester.........19.4 - 45.3 ng/ml . 46 Age Range [place]: Levels are markedly elevated at and fall rapidly during the first week to prepubertal values of <1.0 Males <6m: Levels increase to 1.0 - 3.2 between 30 and 60 days, then decline to prepubertal levels of <1.5 by six months. Females <1y: Levels increase to 0.5 - 5.0 between 30 and 60 days, then decline to prepubertal levels of <1.5 during the first year. Prepubertal <1.5 Adult Males 0.8 - 3.5 Adult Females Follicular 3 - 10 Luteal 7 - 30 Postmenopausal <1.5 See [facility] Directory of Services or contact laboratory for age related normals in puberty. To convert the reference ranges and results to units of pg/mL, use the current values at ng/dL and multiply by 10. 47 Age Range Adult Males 1.7 - 5.4 Adult Females 1.6 - 3.6 48 Age Range Adult Males 0.2 - 1.5 Adult Females 0.6 - 7.1 49 Age Range 1 - 23m 60 - 252 Prepubertal (24m - 8y) 72 - 220 Pubertal Males 16 - 100 Females 36 - 125 Adult Males 20 - 60 Adult Females Premenopausal 40 - 120 Postmenopausal 28 - 112 ASR - Analyte Specific reagent This test was developed and its performance characteristics determined by [facility]. It has not been cleared or approved by the U.S. Food and Drug Administration. The FDA has determined that such clearance is not necessary. This test is used for clinical purposes. It should not be regarded as investigational or for research. This laboratory is regulated under the Clinical Laboratory Improvement Amendment (CLIA) of 1988 as qualified to perform high complexity clinical testing. Test Performed by: [facility] [address] [place] [address] 50 [employer], [employer]. DEPARTMENT OF PATHOLOGY or Extension 8065 NATURAL SCIENCES PROFESSOR CYTOLOGY REPORT PATIENT: SMITA METZGER V : 1975 AGE: 34 Y SEX: F ACCT: [id number] PROCEDURE DATE: 04/16/2009 DATE RECEIVED: 04/17/2009 REQUESTING PHYSICIAN: ASIYA ROWE MD LOCATION: [facility] [place]. [id number] PATIENT DATA: [id number] SPECIMEN SUBMITTED: * * (HPVII) THIN PREP W/HPV (LSIL/ASC/ALLY) * * ENDOCERVICAL RELEVANT HISTORY: LMP: 03/26/2009 Prev.normal: COUPLE OF YEARS AGO SPECIMEN ADEQUACY SATISFACTORY FOR EVALUATION, ENDOCERVICAL TRANSFORMATION ZONE COMPONENT PRESENT GENERAL CATEGORIZATION NEGATIVE FOR INTRAEPITHELIAL LESIONS OR MALIGNANCY INTERPRETATION/ RESULT FUNGAL ORGANISMS MORPHOLOGICALLY CONSISTENT WITH DAILY SPECIES. ADDITIONAL COPIES SENT TO: Screened/Rescreened by: Electronically Signed by: FREEDOM LAMAR(ASCP) Signed Date and Time: 04/18/2009 11:51 Thin Prep Pap tests are examined with an FDA-approved location-guidance system ([id number]). Performed @ [facility], [facility] [address] [place] [phone] "" 51 FASTING 52 * MALES: < 5.0 MIU/ML NON FEMALES < 5.0 MIU/ML APPROX GESTATIONAL AGE APPROX HCG RANGE 0-1 WEEK < 5.0-50 1-2 WEEKS 50-500 2-3 WEEKS 100-5000 3-4 WEEKS 500-10,000 1-2 MONTHS 10,000-200,000 2-3 MONTHS 15,000-100,000 PLEASE NOTE: The intended use of this assay is the quantitative determination of HCG in human serum or plasma for the early detection of . These assays should not be used to diagnose any condition unrelated to . If an HCG level is inconsistent with, or unsupported by, clinical evidence, results should be confirmed by an alternate HCG method. . 53 Anion gap measurement may be of limited value in the presence of any alkalosis, especially in a combined acid base disorder. . 54 1 SST 55 . Less than 5: Negative for 6 - 25: Indeterminate for , and Suggest recollection in 72 hrs Greater than 25: Positive for . NORMAL : Gestational Age HCG range (mIU/mL) 2-3 Weeks 100 - 1,000 3-4 Weeks 500 - 6,000 1-2 Months 5,000 - 200,000 2-3 Months 10,000 - 100,000 2nd Trimester 3,000 - 50,000 3rd Trimester 1,000 - 50,000 . Please Note: This test methodology is limited to the early detection of . False results can occur due to, but not limited to, the presence of heterophilic antibodies, non-specific protein binding, altered forms of HCG, HCG-like substances, trophoblastic or non-trophoblastic neoplasms. . 56 FEMALES: Normally Menstruating: Follicular Phase: 0.15-1.40 Luteal Phase : 3.34-25.56 Mid-Luteal Phase: 4.44-28.03 : First Trimester : 11.-. Second Trimester: 25.55-89.40 Third Trimester : 48.40-422.50 Postmenopausal......: ND*-0.73 *ND=not detectible MALES.................: 0.28-1.22 . 57 FASTING; 1 SST 58 FEMALES: Normally Menstruating: Follicular Phase: 0.15-1.40 Luteal Phase : 3.34-25.56 Mid-Luteal Phase: 4.44-28.03 : First Trimester : 11.-.00 Second Trimester: 25.55-89.40 Third Trimester : 48.40-422.50 Postmenopausal......: ND*-0.73 *ND=not detectible MALES.................: 0.28-1.22 . 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, PEDIATRIC CNS disorder with anxiety F51.02 Adjustment insomnia Office Visit 09/28/2018 9:00a [facility] Carol Mccrary3.22 Adjustment Thomas, PEDIATRIC CNS disorder with anxiety F51.02 Adjustment insomnia Office Visit 03/03/2018 3:20p [facility] Kathryn Ronquillo D50.8 Other iron Lashae Lopes deficiency anemias E55.9 Vitamin D deficiency, unspecified J30.89 Other allergic rhinitis Office Visit 01/13/2018 10:40a [facility] Kathryn Ronquillo Z00.01 Encounter for Lashae Lopes general adult medical exam w abnormal findings Z12.31 Encntr screen mammogram for malignant neoplasm of breast R10.31 Right lower quadrant pain E55.9 Vitamin D deficiency, unspecified D50.8 Other iron deficiency anemias M25.531 Pain in right wrist Office Visit 12/01/2016 10:40a [facility] Office Kathryn Ronquillo Z00.01 Encounter for Lashae Lopes general adult medical exam w abnormal findings E55.9 Vitamin D deficiency, unspecified B07.9 Viral wart, unspecified Z83.1 Family history of other infectious and parasitic diseases Z12.31 Encntr screen mammogram for malignant neoplasm of breast G47.33 Obstructive sleep apnea (adult) (pediatric) Office Visit 02/08/2016 11:00a [facility] Kathryn Ronquillo Z11.1 Encounter for Lashae Lopes screening for respiratory tuberculosis Office Visit 12/26/2015 8:30a [facility] Office Rosa Alexi, D64.9 Anemia, PEDIATRIC CNS unspecified E55.9 Vitamin D deficiency, unspecified E78.4 Other hyperlipidemia Office Visit 11/20/2015 10:00a Main Office Kathryn Ronquillo Z00.01 Encounter for Lashae Lopes general adult medical exam w abnormal findings M62.89 Other specified disorders of muscle E55.9 Vitamin D deficiency, unspecified Z12.31 Encntr screen mammogram for malignant neoplasm of breast Z23 Encounter for immunization Office Visit 09/04/2014 3:15p [facility] Brandie 112.1 Candidiasis [facility] [place], Vulva & Vagina Afnp-C Office Visit 01/11/2014 3:00p [facility] Kathryn Ronquillo V74.1 Screening Lashae Lopes Examination Pulmonary Tuberculosis Office Visit 11/10/2013 9:00a [facility] Kathryn Ronquillo V70.0 Examination Lashae Lopes General Medical Routine AT Health Care Facility 280.1 Iron Deficiency Secondary To Inadequate Dietary Iron Intake 782.1 Rash & Other Nonspec Skin Eruption 110.1 Dermatophytosis Nail V61.9 Family Problem Unspec 268.9 Vitamin D Deficiency Unspec Office Visit 08/18/2012 2:00p [facility] Kathryn Ronquillo V70.0 Examination Lashae Lopes General Medical Routine AT Health Care Facility 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 268.9 Vitamin D Deficiency Unspec 455.3 Hemorrhoids External W/O Complication 327.23 Obstructive Sleep Apnea Adult Pediatric V06.1 Kgwqosymjr-Zxptnzo-Ispocccy Combined (DTaP) V06.5 Tetanus Diphtheria (DT) Office Visit 08/10/2011 9:00a [facility] Asiya Vogel V70.0 Examination Lashae Rowe General Medical Routine AT Health Care Facility 455.3 Hemorrhoids External W/O Complication 369.9 Visual Loss Unspec 628.8 Infertility Female Spec Origin Other 268.9 Vitamin D Deficiency Unspec 780.79 Malaise And Fatigue Other V72.0 Examination Eyes & Vision Office Visit 08/04/2010 9:00a [facility] Asiya Vogel V70.0 Examination Lashae Rowe General Medical Routine AT Health Care Facility 268.9 Vitamin D Deficiency Unspec 628.9 Infertility Female Unspec Origin 782.9 Skin & Integumentary Tissue Other Symptoms 327.52 Sleep Related Leg Cramps V04.81 Need For Prophylactic Vaccination & Inoculation/Influenza Office Visit 10/14/2009 11:20a [facility] Asiya Vogel 616.11 Vaginitis & Office Lashae Rowe Vulvovaginitis In Diseases Class Elsewhere 628.9 Infertility Female Unspec Origin Office Visit 04/16/2009 10:00a [facility] Office Asiya Rowe, 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 Dermatitis NOS V70.0 Examination General Medical Routine AT Health Care Facility 780.93 Memory Loss 791.7 Cells & Casts In Urine Other Office Visit 01/19/2008 10:20a [facility] Dariel Hernandez, 780.79 Malaise And M.D. Fatigue Other 692.9 Eczema NOS, Contact Dermatitis NOS V70.0 Examination General Medical Routine AT Health Care Facility V77.91 Screening For Lipoid Disorders Office Visit 10/20/2006 10:00a Main Office Dariel Hernandez, 300.00 Anxiety State M.D. Unspec 311 Depressive Disorder Not Elsewhere Spec Office Visit 09/29/2006 2:40p Main Office Dariel Hernandez, 300.00 Anxiety State M.D. Unspec 311 Depressive Disorder Not Elsewhere Spec Office Visit 07/23/2006 1:00p [facility] Shruthi Edouard, 787.03 Vomiting Alone Afnp-C 558.9 Gastroenteritis & Colitis Noninfectious Other 626.0 Menstruation Absence Office Visit 09/01/2005 2:00p [facility] Brandie 379.19 Sclera Disorder Shaheen Afnp-C Other Office Visit 12/10/2004 10:20a Main Office Dareil Hernandez, 280.9 Iron Deficiency M.D. Anemia Unspec 782.1 Rash & Other Nonspec Skin Eruption 729.82 Cramp Of Limb 790.6 Abnormal Blood Chemistry Other V70.0 Examination General Medical Routine AT Health Care Facility Office Visit 02/13/2003 1:40p Danielle Fabian 244.9 Hypothyroidism Other Office Lashae Jensen Unspec Office Visit 12/26/2002 9:00a [facility] Talita Lorenzo, 599.0 UTI Urinary Tract Office [employer] Infection Site Not Spec Office Visit 07/20/2002 9:30a [facility] Talita Lorenzo, 628.9 Infertility Female Office [employer] Unspec Origin Office Visit 03/29/2002 10:00a [facility] Talita Raor, Office [employer] Office Visit 12/26/2001 2:00p [facility] Estuardo Cantu Office Lashae Jasso Plan of Treatment 01/19/2019 - Kathryn Lopes M.D.Z00.00 Encounter for general adult medical examination without abnormal findingsComments:SHQ not done discussed healthy lifestyle issues regarding diet and exercise and mental health.F43.22 Adjustment disorder with anxietyNew Medication:Escitalopram Oxalate 5 mg - 1 by mouth every dayComments:trial of escitalopramFollow up:soon for pelvic, pap, review labs, and new medication.E55.9 Vitamin D deficiency, unspecifiedNew Labs :Vitamin D, 25Hydroxy(Fma/LC, Ordered: 01/19/19Z12.31 Encounter for screening mammogram for malignant neoplasm of breastNew Xrays:Mammography Screening, Bilateral; 2-View Each Breast, Ordered: 01/19/19L60.8 Other nail disordersNew Labs:Vitamin B12 And Folate Serum, Ordered: 01/19/19Iron & Tibc With % Saturation, Ordered: 01/19/19AllComments:Medication Management Patient Understands medications she's taking? Yes No Are there Barriers to Adherence? Yes No Has the patient been asked about herbal supplements and therapies, and OTC meds? Yes No
[2019-02-08 12:08] VITALS: BP 116/64
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
== END 2019-02-08 14:10 | disposition home or self-care (01) ==
LOC: UCEAST 11:32
DX: S50.12XA Contusion of left forearm, initial encounter (principal); S80.11XA Contusion of right lower leg, initial encounter; S20.219A Contusion of unspecified front wall of thorax, initial encounter; S20.229A Contusion of unspecified back wall of thorax, initial encounter; V89.2XXA Person injured in unspecified motor-vehicle accident, traffic, initial encounter; Y92.9 Unspecified place or not applicable
CPT/HCPCS: 99211; G0463

== ENCOUNTER 2019-04-09 15:49 | Emergency (ER) | payer OTHER ==
--- NOTE | 2019-04-09 16:03 | UC ---
Ear Complaint HPI - HPI Summary HPI Summary: Pt presents to with 4 days progressive right ear pain. PT states ear was itchy preceeding the discomfort. STates when chews or swallows feels pressure in ear. No fever, chills. No n/v. No sinus congestion. STates hearing decreased in right. Pt denies mckeon, vision changes. PT states had some water drainage form ear yesterday. no edema. not medicaitons reviewed this visit - History of Current Complaint Stated Complaint: EARACHE Time Seen by Provider: 04/09/19 15:57 Hx Obtained From: Patient Hx Last Menstrual Period: 2weeks ago Severity Initially: Mild Severity Currently: Mild Pain Intensity: 2 - Allergies/Home Medications Allergies/Adverse Reactions: Allergies Allergy/AdvReac Type Severity Reaction Status Date / Time No Known Allergies Allergy Verified 04/09/19 16:04 PMH/Surg Hx/FS Hx/Imm Hx Previously Healthy: Yes - Surgical History Surgical History: Yes Surgery Procedure, Year, and Place: 11/17 [facility] [place]- [place] choley. uterine surgery - unsure why - Family History Known Family History: Positive: Hypertension, Other - hyperlipidemia, Non- Contributory - Social History Lives: With Family Alcohol Use: None Substance Use Type: None Smoking Status (MU): Never Smoked Tobacco Review of Systems All Other Systems Reviewed And Are Negative: Yes Constitutional: Positive: Negative Skin: Positive: Negative Eyes: Positive: Negative ENT: Positive: Ear Ache. Negative: Sore Throat, Sinus Congestion Respiratory: Positive: Negative Physical Exam - Summary Physical Exam Summary: Vital Signs Reviewed: Yes A+Ox3, no distress Eyes: Conjunctiva Clear, HOSSEIN. EOM intact and full ENT: Hearing grossly normal left TM wnl - no fluid, no edema, no erythema right TM: + canal inflammation - near closure - slight visibility of TM mild erythema no fluid appreciated but view limited. no edema of tragus or helix, no drainage, no mastoid pain turbinates wnl, mmm no exudate, no erythema Neck: Positive: Supple Respiratory: Positive: No respiratory distress, No accessory muscle use + CTA throughout no w/r Cardiovascular: RRR nl s1, s2 no m/r CBT <2 sec abd soft + BS nt/nd no guarding, no distension Musculoskeletal Exam: MAYNARD x 4 without difficulty Strength Intact, ROM Intact Neurological: Positive: Alert, + sensation throughout Psychological: Positive: Normal Response To Family Skin: Positive: no rash, no ecchymosis Triage Information Reviewed: Yes Ear Complaint Course/Dx - Course Course Of Treatment: Pt presents to ED with right ear pain progressive x 4 days, pt states decreased hearing on right. no fever. took Motrin yesterday VSS on exam, pt with edema external canal with limited visibility of the TM - mild erythema n No external ear edema will Rx ciprodex, omnicef motrin/apap return precautions - Differential Dx/Diagnosis Provider Diagnosis: Otitis externa Discharge - Sign-Out/Discharge Documenting (check all that apply): Patient Departure All imaging exams completed and their final reports reviewed: No Studies - Discharge Plan Condition: Stable Disposition: HOME Prescriptions: Cefdinir [Cefdinir 300 MG CAP] 300 mg PO BID #14 cap Ciproflox/Dexameth OTIC.SUSP* [Ciprodex OTIC.SUSP*] 3 drop RIGHT EAR BID #1 btl Patient Education Materials: Otitis Externa (ED) Referrals: Kathryn Cutler MD [Primary Care Provider] - Additional Instructions: Take antibiotics daily as prescribed use ear drops 4 drops, right ear 2 times a day for 7 days - lay on your side for 5 minutes after using drops to allow them to enter adequately enter ear canal Okay to alternate ibuprofen (Advil, Motrin) and tylenol every 3hours for pain or fever - take with food Schedule a follow-up appointment with your doctor for 7-10days. Contact your doctor or return with questions or concerns - Billing Disposition and Condition Condition: STABLE Disposition: Home
[2019-04-09 16:04] VITALS: BP 123/58
== END 2019-04-09 16:25 | disposition home or self-care (01) ==
LOC: UCEAST 15:49
DX: H60.91 Unspecified otitis externa, right ear (principal)
CPT/HCPCS: 99212; G0463

== ENCOUNTER 2019-10-09 15:12 | Emergency (ER) | payer OTHER ==
--- OUTSIDE RECORDS SUMMARY | 2019-10-09 15:17 | XMS REPORT | Continuity of Care Document ---
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 Medicine Problems Active Problems Provider Date Obstructive sleep apnea syndrome Yue Caraballo MD Onset: 12/29/2016 Hypersomnia Elyse Chin DNP, RN, DIRECTOR OF [employer] Onset: 03/02/2017 Social History Type Date Description Comments Sex Unknown Tobacco Use Start: Unknown Never Smoked Cigarettes Smoking Status Reviewed: 09/08/19 Never Smoked Cigarettes ETOH Use Drinks Alcoholic Beverages Rarely Tobacco Use Start: Unknown Patient has never smoked Recreational Drug Use Denies Drug Use Exercise Type/Frequency Exercises rarely Hard to get started by herself Allergies, Adverse Reactions, Alerts Description No Known Drug Allergies Medications Active Medications SIG Qnty Indications Ordering Provider Date Multivitamin Adult 1 by mouth every Unknown 12/28/2016 day Tablets Vitamin D daily (most days Unknown 12/28/2016 (Cholecalciferol) 12/27/17) Tablets Tylenol 2 tablets every 4 Unknown 325mg Tablets hours as needed Immunizations Description No Information Available Vital Signs Date Vital Result Comment 09/08/2019 9:12am Height 62 inches 5'2" Weight 133.00 lb Heart Rate 67 /min BP Systolic 108 mmHg BP Diastolic 62 mmHg O2 % BldC Oximetry 99 % BMI (Body Mass Index) 24.3 kg/m2 01/02/2019 9:34am Height 62 inches 5'2" Weight 134.00 lb Heart Rate 67 /min BP Systolic Sitting 112 mmHg Left upper arm regular cuff BP Diastolic Sitting 68 mmHg Left upper arm regular cuff Respiratory Rate 12 /min O2 % BldC Oximetry 98 % BMI (Body Mass Index) 24.5 kg/m2 Results Description No Information Available Procedures Description No Information Available Medical Devices Description No Information Available Encounters Description No Information Available Assessments Date Code Description Provider 09/08/2019 G47.33 Obstructive sleep apnea (adult) Elyse Chin DNP, RN, FREDDIE-BC (pediatric) Plan of Treatment Future Appointment(s):09/02/2020 9:15 am - Elyse Chin DNP, RN, DIRECTOR OF [facility] at [facility]09/08/2019 - Elyse Chin DNP, RN, DIRECTOR OF PARKS AND RECREATION- BCG47.33 Obstructive sleep apnea (adult) (pediatric)Comments:Sleep Apnea - HST AHI 54/hour, sherry oxygen 79% On CPAP 3.5/hourFollow up:1 yearRecommendations: Continue PAP device, Benefitting and compliant with treatment. Cleaning Wipe off mask daily (baby wipe-no scent, or warm water) Clean mask, tubing, filter, and water chamber weekly in mild no scent dish soap and water. Hang to dry. If you have any sleepiness while driving you MUST avoid operating a vehicle or machinery. If you have difficulty with your equipment, or need to replace your mask or hoses, please contact your homecare agency. A weight change of 20 pounds or more may have an effect onyour equipment; if you are experiencing problems please call for an appointment. If you decide to pursue surgery ( [facility]) would need NPSG to evaluate the apnea severity. If you have any further questions, please call the [facility] at [phone]. Functional Status Description No Information Available Mental Status Description No Information Available Referrals Description No Information Available
--- NOTE | 2019-10-09 15:55 | UC ---
Elbow Pain - HPI Summary HPI Summary: 44 yo female presents with two complaints; 1) For the last few months she has noticed RIGHT elbow pain that is worse with movement and lifting objects. She states that her job was a lot of lifting, but she changed jobs and her elbow felt better for a few weeks, but then symptoms returned. She has not taken anything OTC for her symptoms. She states she feels some intermittent numbness in her 3rd and 4th digit. 2) Over the last week has noticed episodes of dizziness that she describes as room spinning. This only occurs when she turns her head fast and only lasts < 2seconds. Has also noticed some popping and fullness feeling in her left ear over this same time period. States that she does not get allergies, but did have an ear infection in the past with similar symptoms. She also notes that she was taking lexapro on and off for about a year and stopped this about 10 days ago because she states she wants to see if she can handle her stress at home/work without medication. States that she is unsure why her PCP started her on this to begin with as she did not want to take any meds. Denies fever, chills, head injury, headache, neck pain, recent illness, SOB, chest pain, abdominal pain, n/v. - History of Current Complaint Stated Complaint: ELBOW PAIN Time Seen by Provider: 10/09/19 15:55 Hx Obtained From: Patient Hx Last Menstrual Period: 2weeks ago Severity Initially: Mild Severity Currently: Mild Pain Intensity: 2 Pain Scale Used: 0-10 Numeric - Allergies/Home Medications Allergies/Adverse Reactions: Allergies Allergy/AdvReac Type Severity Reaction Status Date / Time No Known Allergies Allergy Verified 10/09/19 15:57 Home Medications: Home Medications Cholecalciferol (Vitamin D3) [Vitamin D3] 1 tab PO DAILY 10/09/19 [History Confirmed 10/09/19] Escitalopram * [Lexapro 5 mg (NF)] 1 tab PO DAILY 10/09/19 [History Confirmed ] Iron 1 tab PO DAILY 10/09/19 [History Confirmed 10/09/19] PMH/Surg Hx/FS Hx/Imm Hx Psychological History: Depression - Surgical History Surgical History: Yes Surgery Procedure, Year, and Place: 11/17 [facility] [place]- [facility]. uterine surgery - unsure why - Family History Known Family History: Positive: Hypertension, Other - hyperlipidemia - Social History Occupation: Employed Full-time Lives: With Family Alcohol Use: None Substance Use Type: None Smoking Status (MU): Never Smoked Tobacco Review of Systems All Other Systems Reviewed And Are Negative: No Constitutional: Positive: Negative Skin: Positive: Negative Eyes: Positive: Negative ENT: Positive: Ear Ache Respiratory: Positive: Negative Cardiovascular: Positive: Negative Gastrointestinal: Positive: Negative Genitourinary: Positive: Negative Motor: Positive: Negative Neurovascular: Positive: Negative Musculoskeletal: Positive: Other: - Elbow pain Neurological: Positive: Other - Dizziness Psychological: Positive: Negative Physical Exam - Summary Physical Exam Summary: GENERAL: NAD. WDWN. No pain distress. SKIN: No rashes, sores, ulcers, masses, lesions. HEENT: Head: AT/NC. No raccoon eyes or battles sign. Eyes: PERRLA. EOM intact. Conjunctiva clear without inflammation or discharge. Ears: Hearing grossly normal. TMs intact, no bulging, erythema, or edema. No hemotympanum. Clear fluid behind both TMs. Nose: Nasal mucosa pink and moist. NTTP maxillary and frontal sinus. Throat: Posterior oropharynx without exudates, erythema, or tonsillar enlargement. Uvula midline. NECK: Supple. Nontender. FROM CHEST: CTAB. No r/r/w. No accessory muscle use. Breathing comfortably and in no distress. CV: RRR. Pulses intact. Brisk cap refill. ABDOMEN: Soft. NTTP. Bowel sounds present MSK: FROM in B/L UEs and LEs with symmetric strength. RIGHT ELBOW: Mild TTP about lateral epicondyle. FROM. Pain with middle finger extension against resistance in lateral epicondyle. NEURO: A&Ox3. CN: II: Peripheral ken intact. Vision normal. III, IV, : EOMI. No nystagmus. PERRLA. V: Sensations intact and symmetric. Opens mouth and clenches teeth. VII: No facial asymmetry. Forehead wrinkles. Grins, shuts eyes, frowns, puffs cheeks. VIII: Hearing intact to finger rub. IX, X: Swallows and coughs. Uvula midline. XI: Shrugs shoulders. Turns head against resistance. XII : No tongue deviation [id number] are intact. Gait with normal base. Romberg : maintains balance, no pronator drift. Normal speech. No facial drooping. Sensations intact and symmtetric C4-T1 b/l. PSYCH: Age appropriate behavior. Triage Information Reviewed: Yes Vital Signs: Vital Signs: Temp Pulse Resp BP Pulse Ox 97.7 F 67 18 113/56 100 10/09/19 15:49 10/09/19 15:49 10/09/19 15:49 10/09/19 15:49 10/09/19 15:49 Vital Signs Reviewed: Yes Diagnostics - Radiology Elbow XR Radiology Interpretation Completed By: Radiologist Elbow Pain Course/Dx - Course Course Of Treatment: 1) XR as above. Her elbow discomfort seems most likely lateral epicondylitis likely due to overuse injury. -- Will rx for naproxen, have her try an elbow brace, and refer her to PT for further eval and treatment 2) Her dizziness is positional and seems most likely related to BPPV and possible serous otitis media. Neuro exam WNL without focal deficits. Will try her with flonase and claritin to see if this improves. - Differential Dx/Diagnosis Provider Diagnosis: Lateral epicondylitis, BPPV (benign paroxysmal positional vertigo) Discharge ED - Sign-Out/Discharge Documenting (check all that apply): Patient Departure All imaging exams completed and their final reports reviewed: Yes - Discharge Plan Condition: Stable Disposition: HOME Prescriptions: Fluticasone NASAL SPRAY 50MCG* [Flonase NASAL SPRAY 50MCG*] 2 spray BOTH NARES DAILY #1 btl Loratadine [Claritin] 10 mg PO DAILY #30 tablet Naproxen [Naproxen 500 mg tab] 500 mg PO BID PRN #30 tablet.dr WRIGHT Reason: Pain - Mild Patient Education Materials: Tennis Elbow (ED), Benign Paroxysmal Positional Vertigo (ED) Referrals: Kathryn Cutler MD [Primary Care Provider] - As Soon As Possible Additional Instructions: If you develop a fever, shortness of breath, chest pain, new or worsening symptoms - please call your PCP or go to the ED immediately. 1) The X-ray of your elbow was normal. I suspect this is tendinitis due to overuse. Continue rest, ice, and use the elbow brace for comfort. May take the Naproxen prescribed for additional pain relief. -- Please call Physical therapy to schedule an appointment for further evaluation and treatment of your elbow 2) Your dizziness seems most likely related to positioning and could be due to the fluid in your ears. Try taking the allergy medications prescribed. If your dizziness worsens or does not improve -- please schedule an appointment with your primary doctor to have this rechecked. - Billing Disposition and Condition Condition: STABLE Disposition: Home
[2019-10-09 16:01] VITALS: BP 113/56
== END 2019-10-09 17:14 | disposition home or self-care (01) ==
LOC: UCEAST 15:12
DX: M77.11 Lateral epicondylitis, right elbow (principal); H81.10 Benign paroxysmal vertigo, unspecified ear
CPT/HCPCS: 99212; G0463

== ENCOUNTER 2023-11-11 09:06 | Observation (INO) ==
[~2023-11-11 09:06] MED LIST: Naloxone 0.4 mg VIAL 0.4 mg/ml 1 ml VIAL IV PUSH PRN
[2023-11-11 10:19] LABS: ABS Basophils 0.1 10^3/uL (0.0-0.1); ABS Eosinophils 0.2 10^3/uL (0.0-0.5); ABS Lymphocytes 1.7 10^3/uL (1.0-4.8); ABS Monocytes 0.7 10^3/uL (0.0-0.9); ABS Neutrophils 5.3 10^3/uL (1.5-7.6); Eosinophil % 2.3 %; Lymphocyte % 21.1 %; Mean Corpuscular Hemoglobin 24.4 pg (27-33); Mean Corpuscular Hgb Conc 32.5 g/dL (31-36); Mean Corpuscular Volume 75.1 fL (80-97); Mean Platelet Volume 8.7 fL (7.5-11.2); Nucleated Red Blood Cells % 0.1 %/100WBC (0.0-0.8); Platelet Count 350 10^3/uL (150-450); Red Blood Count 4.93 10^6/uL (3.63-4.92); Red Cell Distribution Width 13.8 % (12-17)
[2023-11-11 10:24] LABS: INR 0.95 (0.83-1.13)
[2023-11-11] MEDS ORDERED: Scopolamine 1 mg/72hr PATCH ONE ×2 (10:24→10:44)
[2023-11-11] MEDS ORDERED: oxyCODONE SR 10 mg TAB ONE (10:24)
[2023-11-11] MEDS ORDERED: Ondansetron 4 mg VIAL 2 MG/ML 2 ml VIAL ONE (10:24)
[2023-11-11 10:35] LABS: Anion Gap 10 mmol/L (2-16); Blood Urea Nitrogen 19 mg/dL (6-24); CO2 Carbon Dioxide 24 mmol/L (22-32); Calcium 9.2 mg/dL (8.6-10.3); Chloride 101 mmol/L (101-111); Creatinine, Serum 0.74 mg/dL (0.51-0.95); Glucose 110 mg/dL (70-100); Potassium 3.7 mmol/L (3.5-5.0); Sodium 135 mmol/L (135-145); eGFR CKD-EPI 98.5 (>60)
[2023-11-11 10:43] LABS: HCG Pregnancy < 0.60 mIU/mL
[2023-11-11] MEDS ORDERED: Iohexol 350 (CONTRAST) 100 ML PAK IV ONE (10:48)
[2023-11-11] MEDS ORDERED: Heparin 2 UNITS/ML IVPREMIX 3,000 UNIT/1,500 ML BAG IV ONE (10:48)
[2023-11-11] MEDS ORDERED: nitroGLYCERIN DRIP 25,000 MCG/250 ML BTL ONE (10:48)
[2023-11-11] MEDS ORDERED: Lidocaine 1% VIAL 10 MG/ML 30 ML VIAL ONE (10:48)
[2023-11-11] MEDS ORDERED: Midazolam 5 mg/5 ml VIAL 1 mg/ml 5 ml VIAL (5 mg) ONE (10:54)
[2023-11-11] MEDS ORDERED: fentaNYL 100 mcg/2 ml 50 MCG/ML VIAL ONE (10:54)
[2023-11-11] MEDS ORDERED: Clindamycin 900 MG/50 **NS BAG 900 MG/50 ML BAG IV ONE (11:00)
[2023-11-11] MEDS: Clindamycin 900 MG/50 **NS BAG 900 MG/50 ML BAG IV ONE (11:00)
[2023-11-11 11:09] LABS: Urine Appearance Clear; Urine Bilirubin Negative (Negative); Urine Blood Negative (Negative); Urine Color Colorless; Urine Glucose Negative (Negative); Urine Ketones Negative (Negative); Urine Nitrite Negative (Negative); Urine Protein Negative (Negative); Urine Specific Gravity 1.002 (1.002-1.030); Urine Urobilinogen Negative (Negative); Urine pH 6.5 (5.0-8.0)
[2023-11-11] MEDS ORDERED: Naloxone 0.4 mg VIAL 0.4 mg/ml 1 ml VIAL IV PUSH PRN (11:16)
[2023-11-11] MEDS ORDERED: Flumazenil 0.5 mg/5 ml 0.1 MG/ML 5 ml VIAL IV PRN (11:16)
[2023-11-11] MEDS: Midazolam 10 mg/10 ml VIAL 1 mg/ml 10 ml VIAL (10 mg) IV SLOW PU ONE (12:24)
[2023-11-11] MEDS: fentaNYL 100 mcg/2 ml 50 MCG/ML VIAL IV SLOW PU ONE (12:24)
[2023-11-11] MEDS: NS 0.9% 1,000 ML IV SCH (12:38)
[2023-11-11] MEDS ORDERED: HYDROmorphone PCA 20 MG/20 ML PCA.SYRING PCA SCH ×2 (12:45)
[2023-11-11] MEDS: HYDROmorphone PCA 20 MG/20 ML PCA.SYRING PCA SCH (12:45)
[2023-11-11] MEDS: Ondansetron 4 mg VIAL 2 MG/ML 2 ml VIAL IV SCH (17:01)
[2023-11-12 05:15] VITALS: BP 99/63
[2023-11-12] MEDS ORDERED: HYDROcodone/ACETAMIN 5/325 mg TAB PO PRN (07:44)
[2023-11-12] MEDS: Cholecalciferol (VIT D3) 1,000 unit TAB PO SCH (08:48)
[2023-11-12] MEDS: CMCS: Ketorolac 10 mg TAB (NF) PO SCH (08:49)
== END 2023-11-12 10:55 | disposition home or self-care (01) ==
LOC: SSU 09:06 → CHICATH 09:06 → SUATTDRO 13:24
PROVIDERS: ADMIT Student in an Organized Health Care Education/Training Program; ATTEND Student in an Organized Health Care Education/Training Program
PROC: ANG.UFE (2023-11-11 11:15)